=== PATIENT | male | born 1935 | race Caucasian/White ===

== ENCOUNTER 2021-02-19 08:36 | Outpatient (CLI) | payer MEDICARE, SELFPAY ==
--- NOTE | 2021-02-19 09:15 | US_ITS ---
WS: [id number] ULTRASOUND RENAL TECHNIQUE: Ultrasound examination of both kidneys. CLINICAL INFORMATION: DETRUSOR, DYSFUNCTION COMPARISON: None. FINDINGS: Moderate bilateral hydronephrosis. RIGHT: Echogenicity: Normal. Cortical thickness: 1.5 cm; Normal. Hydronephrosis: Moderate Perinephric fluid: None. Right kidney measures: 10.2 cm x 3.7 cm x 5.4 cm. LEFT: Simple left renal cyst measuring 1.6 x 1.7 x 1.8 cm Echogenicity: Normal. Cortical thickness: 1.2 cm; Normal. Hydronephrosis: Moderate Perinephric fluid: None. Left kidney measures: 11.3 cm x 3.6 cm x 4.2 cm. Normal visualized aorta. Enlarged prostate measuring 5.8 x 6.1 x 5.2 cm. Diffuse bladder wall thicken ing consistent with bladder outlet obstruction. US/US renal BI* [id number] IMPRESSION: 1. Moderate bilateral hydronephrosis with proximal ureterectasis. 2. Enlarged nodular prostate measuring 5.8 x 6.1 x 5.2 cm with bladder outlet obstruction. Recommend correlation PSA.
== END 2021-02-19 08:37 | disposition home or self-care (01) ==
PROVIDERS: PCP Family Medicine; Visit Provider Urology
DX: N31.8 Other neuromuscular dysfunction of bladder (principal); N13.30 Unspecified hydronephrosis; N40.0 Benign prostatic hyperplasia without lower urinary tract symptoms
CPT/HCPCS: 76770; 80048

== ENCOUNTER 2021-08-24 11:22 | Inpatient (IN) | payer MEDICARE, SELFPAY ==
[2021-08-24 11:57] VITALS: BP 124/81; PULSE 87; RESP 20; TEMP 36.5; O2SAT 98; BMI 20.8
--- NOTE | 2021-08-24 12:08 | XR_ITS ---
WS: [id number] XR chest 1V portable [id number] REASON FOR EXAM: dyspnea/cough FINDINGS: Moderate tortuosity the thoracic aorta. Normal heart size. Calcified granulomatous changes in both hemithoraces. No active pulmonary parenchymal or pleural disease. There is some flattening of the hemidiaphragms suggesting an element of obstructive lung disease. Moderate degenerative spondylosis in the mid and lower thoracic spine. XR/XR chest 1V portable [id number] IMPRESSION: No acute chest abnormality.
[2021-08-24 13:28] LABS: Basophils % 0.4 %; Hemoglobin 12.5 g/dL (11.7-16.6); Lymphocytes # 1.1 10^3/uL (0.8-4.8); Lymphocytes % 9.4 %; Mean Corpuscular HGB Conc 31.3 g/dL (30.0-36.0); Mean Corpuscular Hemoglobin 26.5 pg (28.0-34.0); Mean Corpuscular Volume 84.9 fl (80-94); Monocytes # 1.4 10^3/uL (0.2-0.9); Monocytes % 12.8 %; Neutrophils % 74.9 %; Nucleated Red Blood Cells % 0 %; Platelet Count 385 10^3/cmm (130-400); Red Blood Count 4.71 10^6/uL (4.1-5.3); Red Cell Distribution Width 14.6 % (12.1-15.1); White Blood Count 11.2 10^3/uL (4.0-10.0)
[2021-08-24 13:50] LABS: Alanine Aminotransferase 6 U/L (0-41); Albumin Level 3.8 g/dL (3.5-5.2); Alkaline Phosphatase 76 IU/L (40-130); Anion Gap 27.6 (5-19); Aspartate Amino Transferase 8 U/L (0-40); Carbon Dioxide 11 mmol/L (22-29); Chloride 97 mmol/L (98-107); Glucose 150 mg/dL (65-115); Potassium 4.6 mmol/L (3.5-5.1); Sodium 131 mmol/L (136-145); Total Bilirubin 0.5 mg/dL (0.15-1.2); Total Protein 7.8 g/dL (6.6-8.7)
[2021-08-24 14:00] LABS: Blood Urea Nitrogen 153 mg/dL (8-23)
[2021-08-24 14:01] LABS: Osmolality Calculated 325 mOsm/kg (285-295)
--- NOTE | 2021-08-24 17:11 | ED_ITS ---
HPI - General Adult General: Chief complaint: ER Hold Stated complaint: NOT EATING NOT DRINKING Time Seen by Provider: 08/24/21 16:54 History of Present Illness: 86-year-old male presents emergency room he was recently diagnosed with COVID at his primary care doctor's office. He has not been able to eat or drink and has progressively been weakening to the point that he cannot manage his own ADLs. He was somewhat limited prior to this episode as well. He is not been particularly short of breath his oxygenation has been good at home and is here as well. Patient self caths and reports decreased urinary return from his catheterizations. Onset (ago): day(s) Severity: severe (Weakness) Relieving factors: none Exacerbating factors: none Associated symptoms: Reports confusion, cough, decreased appetite, malaise, nausea, vomiting and weakness; Deny chest pain, diaphoresis, dyspnea, fevers/chills, headache(s), rash, palpitations, seizures, short of breath or syncope Treatments prior to arrival: none Review of Systems Const: Reports: malaise; Denies: diaphoresis ENMT: Denies: throat pain, ear or mastoid pain, nasal discharge or nasal congestion Card: Denies: chest pain, palpitations or syncope Resp: Reports: non-productive cough and wheezing; Denies: dyspnea GI: Reports: nausea and vomiting : Reports: oliguria and other (Chronic urinary retention secondary to BPH, patient self caths) Skin/Breast: Denies: rash Neuro: Reports: confusion; Denies: headache(s) FORMERLY [facility], [facility]–1983 ED PFSH: Medical History Bilateral hydronephrosis CKD (chronic kidney disease) COVID Detrusor dysfunction DNR (do not resuscitate) Epididymitis, right History of right inguinal hernia Intermittent self-catheterization of bladder Urinary retention Surgical History History of cataract surgery BILATERAL Family History Mother , AT AGE 76 Diabetes Father , AT AGE 67 CVA Stroke Social History Smoking and tobacco status: never smoked Alcohol intake: never Adopted: No Caregiver/support person: No Marital status: Current occupational status: retired History of recent travel: No Physical Exam Const: COMMON NORMALS: no acute distress GENERAL APPEARANCE: cooperative and comfortable ORIENTATION/CONSCIOUSNESS: Yes awake HENMT: COMMON NORMALS: normocephalic, atraumatic and hearing grossly normal bilaterally HEAD & SCALP: normocephalic and atraumatic Neck/C-Spine: COMMON NORMALS: no JVD Resp: AUSCULTATION: crackles and wheezes Cardio: COMMON NORMALS: no JVD, regular rate, regular rhythm and No murmurs present (Cardio) RATE: regular rate RHYTHM: regular rhythm GI: COMMON NORMALS: Soft to palpation and No hepatosplenomegaly present AUSCULTATION: Yes normoactive bowel sounds PALPATION: Yes Soft to palpation, No Tenderness to palpation present (GI), No Guarding due to palpation present (GI) and Yes No hepatosplenomegaly present Extremity: COMMON NORMALS: normal to inspection, capillary refill normal, no clubbing, cyanosis or edema, no calf tenderness and no pedal edema Skin: COMMON NORMALS: no rashes or lesions noted GENERAL SKIN EXAM: no rashes or lesions noted Course Vital Signs: Vital signs: Vital Signs Temperature 97.7 F 08/24/21 11:57 Pulse Rate 87 08/25/21 06:35 Respiratory Rate 18 08/25/21 06:35 Blood Pressure 102/63 08/25/21 06:35 Pulse Oximetry 98 08/25/21 06:35 MDM - General Adult Medical Decision Making Patient usually self caths and has noticed decreased urinary output and she had difficulty with intake as well as things largely secondary to his COVID. Overall however his COVID is not that significant his oxygenation is good and he seems to be tolerating it well at least at this point. He is significantly h yponatremic and has severe acute kidney injury. He is mildly anemic. UA shows signs of cystitis. Discussed with Dr. Gonzales he will assume care and see the patient in the emergency room due to lack of inpatient beds patient will likely have a prolonged ER hold. Medical Records I reviewed the patient's medical records. Lab Data I reviewed the patient's lab results. : 08/25/21 05:52 08/24/21 21:29 Radiology Impressions Chest X-Ray 08/24/21 12:08 IMPRESSION: No acute chest abnormality. Abdomen/Pelvis CT 08/24/21 17:47 IMPRESSION: 1. 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 2. Moderate right hip osteoarthritis. 3. Small left inguinal hernia containing omentum without bowel. 4. Right lower lobe airspace infiltrate. 5. Cholelithiasis. Laboratory Results WBC 8.7 10^3/uL (4.0-10.0) 08/25/21 05:52 RBC 3.91 10^6/uL (4.1-5.3) L 08/25/21 05:52 Hgb 10.6 g/dL (11.7-16.6) L 08/25/21 05:52 Hct 31.5 % (42.0-52.0) L 08/25/21 05:52 MCV 80.6 fl (80-94) D 08/25/21 05:52 MCH 27.1 pg (28.0-34.0) L 08/25/21 05:52 MCHC 33.7 g/dL (30.0-36.0) D 08/25/21 05:52 RDW 14.5 % (12.1-15.1) 08/25/21 05:52 Plt Count 252 10^3/cmm (130-400) D 08/25/21 05:52 MPV 9.2 fL (7.4-10.4) 08/25/21 05:52 Neut % (Auto) 81.6 % 08/25/21 05:52 Lymph % (Auto) 5.3 % 08/25/21 05:52 Colbert % (Auto) 10.7 % 08/25/21 05:52 Eos % (Auto) 0.0 % 08/25/21 05:52 Baso % (Auto) 0.1 % 08/25/21 05:52 Neut # (Auto) 7.13 10^3/uL (1.8-7.7) 08/25/21 05:52 Lymph # (Auto) 0.5 10^3/uL (0.8-4.8) L 08/25/21 05:52 Colbert # (Auto) 0.9 10^3/uL (0.2-0.9) 08/25/21 05:52 Eos # (Auto) 0.0 10^3/uL (0.0-0.8) 08/25/21 05:52 Baso # (Auto) 0.0 10^3/uL (0.0-0.1) 08/25/21 05:52 Nucleated RBC % (auto) 0 % 08/25/21 05:52 Nucleated RBCs # 0.0 /100WBC 08/25/21 05:52 PT 14.40 SECONDS (12.1-14.9) 08/24/21 21:29 INR 1.09 (0.8-1.2) 08/24/21 21:29 D-Dimer 1.42 ug/mIFEU (0-0.59) H 08/24/21 21:29 Sodium 130 mmol/L (136-145) L 08/24/21 21:29 Potassium 4.6 mmol/L (3.5-5.1) 08/24/21 21:29 Chloride 95 mmol/L (98-107) L 08/24/21 21:29 Carbon Dioxide 16 mmol/L (22-29) L 08/24/21 21:29 Anion Gap 23.6 (5-19) H 08/24/21 21:29 BUN 161 mg/dL (8-23) H* 08/24/21 21:29 Creatinine 8.9 mg/dL (0.7-1.2) H* 08/24/21 21:29 GFR Calculation Not Reportable 08/24/21 21:29 Glucose 158 mg/dL (65-115) H 08/24/21 21:29 Estimat Average Glucose 123 08/25/21 05:52 Hemoglobin A1c 5.9 % (4.0-6.0) 08/25/21 05:52 Calculated Osmolality 326 mOsm/kg (285-295) H 08/24/21 21:29 Calcium 8.8 mg/dL (8.5-10.5) 08/24/21 21:29 Phosphorus 5.7 mg/dL (2.5-4.5) H 08/24/21 21:29 Magnesium 3.1 mg/dL (1.7-2.3) H 08/24/21 21:29 Iron 22 ug/dL (59-158) L 08/24/21 21: TIBC 201 mcg/dl 08/24/21 21: % Saturation 10.9 % (20-50) L 08/24/21: Unsat Iron Binding 179 ug/dL (112-347) 08/24/21 21: Total Bilirubin 0.3 mg/dL (0.15-1.2) 08/24/21: AST 12 U/L (0-40) 08/24/21: ALT 6 U/L (0-41) 08/24/21 21: Alkaline Phosphatase 77 IU/L (40-130) 08/24/21 21: Lactate Dehydrogenase 151 U/L (135-225) 08/24/21: Creatine Kinase 66 U/L (39-308) 08/24/21 21: C-Reactive Protein 67.1 mg/L (0.0-4.9) H 08/24/21: Total Protein 7.5 g/dL (6.6-8.7) 08/24/21 21: Albumin 3.8 g/dL (3.5-5.2) 08/24/21 21: Globulin 3.7 g/dL (1.3-4.6) 08/24/21 21: Procalcitonin 1.04 ng/mL (0-0.5) H 08/24/21 21: TSH 0.11 uIU/mL (0.27-4.20) L 08/24/21: Free T4 1.19 ng/dL (0.82-1.77) 08/24/21 21: Free T3 1.5 PG/ML (2.0-4.4) L 08/24/21 21:29 Urine Color Cancelled 08/24/21 18:56 Urine Color Yellow (Yellow) 08/24/21 18:56 Urine Appearance Cancelled 08/24/21 18:56 Urine Appearance Hazy (CLEAR) A 08/24/21 18:56 Urine pH 6 (5-7) 08/24/21 18:56 Urine pH Cancelled 08/24/21 18:56 Ur Specific Goodman 1.010 (1.005-1.030) 08/24/21 18:56 Ur Specific Goodman Cancelled 08/24/21 18:56 Urine Protein 1+ (Negative) H 08/24/21 18:56 Urine Protein Cancelled 08/24/21 18:56 Urine Glucose (UA) Cancelled 08/24/21 18:56 Urine Glucose (UA) Norm (Normal) 08/24/21 18:56 Urine Ketones Cancelled 08/24/21 18:56 Urine Ketones Negative (Negative) 08/24/21 18:56 Urine Blood 3+ (Negative) H 08/24/21 18:56 Urine Blood Cancelled 08/24/21 18:56 Urine Nitrate Cancelled 08/24/21 18:56 Urine Nitrate Negative (Negative) 08/24/21 18:56 Urine Bilirubin Cancelled 08/24/21 18:56 Urine Bilirubin Neg (Negative) 08/24/21 18:56 Prot Sulfosalicylic Acd Cancelled 08/24/21 18:56 Urine Urobilinogen Cancelled 08/24/21 18:56 Urine Urobilinogen Norm mg/dL (Negative) 08/24/21 18:56 Ur Leukocyte Esterase 2+ (Negative) H 08/24/21 18:56 Ur Leukocyte Esterase Cancelled 08/24/21 18:56 Ur Microscopic Indic Cancelled 08/24/21 18:56 Urine RBC 5-10 /hpf (0-2) H 08/24/21 18:56 Urine WBC >100 /hpf (0-5) H 08/24/21 18:56 Ur Eosinophil Smear TNP 08/24/21 18:56 Ur Squamous Epith Cells 0-4 /hpf (0-5) H 08/24/21 18:56 Amorphous Sediment Not Reportable 08/24/21 18:56 Urine Bacteria 2+ /hpf (NONE) H 08/24/21 18:56 Urine Eosinophils No eosinophils seen 08/24/21 18:56 Ur Random Microalbumin 41 ug/dL (0-20) H 08/24/21 18:56 Ur Random Sodium 71 mmol/L 08/24/21 18:56 Ur Random Potassium 21 mmol/L 08/24/21 18:56 Ur Random Chloride 51 mmol/L 08/24/21 18:56 Urine Creatinine 83 mg/dL (39-259) 08/24/21 18:56 Urine Creatinine 89 mg/dL (39-259) 01/31/22 18:56 Microalb/Creat Ratio 461 mg/dL (0-20) H 08/24/21 18:56 Hepatitis A IgM Ab Non-reactive (Nonreactive) 08/24/21 21:29 Hep Bs Antigen Non-reactive (Nonreactive) 08/24/21 21:29 Hep Bs Antibody 3.5 (11.5-1000) L 08/24/21 21:29 Hep B Core Total Ab Non-reactive (Nonreactive) 08/24/21 21:29 Hepatitis C Antibody Non-reactive (Nonreactive) 08/24/21 21:29 HIV 1&2 Ab & HIV 1 Ag Non-reactive (Non-Reactiv) 08/24/21 21:29 HIV 1&2 Antibody Non-reactive (Non-Reactiv) 08/24/21 21:29 Discharge Plan Discharge Patient Disposition: Admitted As Inpatient Admit Provider: Biju Gonzales Clinical Impression: Acute kidney injury superimposed on CKD, Bilateral hydronephrosis, High anion gap metabolic acidosis, Urinary retention, Cystitis, DNR (do not resuscitate), Intermittent self-catheterization of bladder, COVID Condition: Stable Coding Level of Care Code ED Site Superintendent for Bindu Weston
--- NOTE | 2021-08-24 17:47 | CTR_ITS ---
PROCEDURE INFORMATION: Exam: CT Abdomen And Pelvis Without Contrast Exam date and time: 08/24/2021 5:47 PM Age: 86 years old Clinical indication: Other: Not eating or drinking; Additional info: Renal failure TECHNIQUE: Imaging protocol: Computed tomography of the abdomen and pelvis without contrast. Radiation optimization: All CT scans at this facility use at least one of these dose optimization techniques: automated exposure control; mA and/or kV adjustment per patient size (includes targeted exams where dose is matched to clinical indication); or iterative reconstruction. COMPARISON: CT abdomen pelvis [facility] [id number] 03/07/2017 8:39 PM RADIATION DOSE METRICS: Total DLP (mGy-cm): 568.21 FINDINGS: Lungs: Right lower lobe airspace infiltrate. Liver: Normal. No mass. Gallbladder and bile ducts: Cholelithiasis. Pancreas: Normal. No ductal dilation. Spleen: Normal. No splenomegaly. Adrenal glands: Normal. No mass. Kidneys and ureters: Severe bilateral hydronephrosis and hydroureter with a trabeculated appearance of the urinary bladder and nodular enlargement of the prostate gland suggestive of chronic outflow obstruction secondary to the prostate causing a degree of chronic obstruction. Stomach and bowel: Unremarkable. No obstruction. No mucosal thickening. Appendix: No evidence of appendicitis. Intraperitoneal space: Unremarkable. No free air. No significant fluid collection. Vasculature: Unremarkable. No abdominal aortic aneurysm. Lymph nodes: Unremarkable. No enlarged lymph nodes. Urinary bladder: See Kidneys and ureters finding. Reproductive: See Kidneys and ureters finding. Bones/joints: Moderate right hip osteoarthritis. Soft tissues: Small left inguinal hernia containing omentum without bowel. CT/CT abdomen pelvis [facility] [id number] IMPRESSION: 1. 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 2. Moderate right hip osteoarthritis. 3. Small left inguinal hernia containing omentum without bowel. 4. Right lower lobe airspace infiltrate. 5. Cholelithiasis.
--- NOTE | 2021-08-24 17:54 | P.HP_ITS ---
Providers/Chief Complaint Primary Care Provider: Maciej Butcher DO Chief Complaint: NOT EATING NOT DRINKING History of Present Illness Jose Bergman is a 86 year old male with with past medical history of BPH, bilateral hydronephrosis, CKD with baseline creatinine of 4, who self catheterizes at home who was recently tested positive for Covid on last August 18 brought into the hospital today by his son because of feeling weak and poor appetite. As per the son patient has been getting weaker over last 2 weeks after he had a sinus infection though tested positive only 6 days ago. Patient has had poor appetite and oral intake for last 1 week. Denies any change in color or amount of urine for last 1 week. Denies any changes in schedule of self-catheterization. On examination patient lying comfortably in bed, very hard of hearing, arousable and following simple commands with blood pressure of 120/80, heart rate of 57, saturating 97% on room air. Blood work in the ER showed a white count of 11.2, hemoglobin of 12.5, sodium of 131, creatinine of 8.9, BUN of 153, AST/ALT of 8/6. Review of Systems General: Reports: ROS unobtainable due to mental status Medications/Allergies Home Medications Medication Instructions Recorded Confirmed Last Taken Type finasteride 5 mg tablet 5 mg PO QDAY #90 tab 02/03/21 02/19/21 Unknown Rx tamsulosin 0.4 mg capsule See Rx Instructions .ROUTE 07/17/21 Unknown Rx .COMPLEX #180 cap Allergies Allergy/AdvReac Type Severity Reaction Status Date / Time No Known Allergies Allergy Unverified 08/24/21 11:57 PFSH Acute PFSH: Medical History (Updated 08/24/21 @ 18:10 by Biju Gonzales MD) Bilateral hydronephrosis CKD (chronic kidney disease) COVID Detrusor dysfunction DNR (do not resuscitate) Epididymitis, right History of right inguinal hernia Intermittent self-catheterization of bladder Urinary retention Surgical History History of cataract surgery BILATERAL Family History Mother , AT AGE 76 Diabetes Father , AT AGE 67 CVA Stroke Social History Smoking and tobacco status: never smoked Alcohol intake: never Adopted: No Caregiver/support person: No Marital status: Current occupational status: retired History of recent travel: No Vitals/I&O/Wt Last Vital Signs Temp 97.7 F 08/24/21 11:57 Pulse 87 08/24/21 11:57 Resp 20 H 08/24/21 11:57 BP 124/81 08/24/21 11:57 Pulse Ox 98 08/24/21 11:57 Weight last 48 hrs Weight 58.513 kg Physical Exam Narrative: EXAM NARRATIVE: General: No acute distress, hard of hearing, lethargic, arousable HEENT: PERRLA, pupils bilaterally equal and reactive Chest: Bilateral bronchial breath sounds with occasional rhonchi all over the lung [place], equal good air entry bilaterally CVS: S1-S2 regular, no murmurs, no tachycardia, no gallops, no rubs Abdomen: Soft, nontender, no organomegaly, bowel sounds present Neuro: No focal deficits, no facial deformity, AO x3, power 3/5 in all limbs Data : 08/24/21 13:20 08/24/21 13:20 A&P Assessment and plan (1) Acute kidney injury superimposed on CKD: Status: Acute (2) COVID: Status: Acute (3) Intermittent self-catheterization of bladder: Status: Acute (4) Bilateral hydronephrosis: Status: Acute (5) High anion gap metabolic acidosis: Status: Acute (6) DNR (do not resuscitate): Status: Acute Plan 86-year-old man with past medical history of CKD, chronic urinary retention on intermittent self-catheterization, bilateral hydronephrosis presented to the ER with lethargy and weakness found to be in DIANE on CKD. CT abdomen pelvis without contrast to evaluate for hydronephrosis. Buchanan catheterization, urinalysis, urine lites, urine creatinine, urine eosinophils. Check hepatitis panel, HIV, magnesium, phosphorus. Repeat BMP stat. Normal saline at 50 cc/h while monitoring for fluid overload. No overt need of dialysis currently. Will consult nephrology. Continue home dose of finasteride and Flomax. COVID-19: Diagnosed 6 days ago. Still do not have a report. Will request tomorrow morning with primary's office. Isolation precaution. Saturating well on room air. Hold off on any treatment for now. Monitor inflammatory markers with CRP every 48 hours. CODE STATUS: Discussed with son/caregiver/DPOA in detail. DNR/DNI. Renal nondialysis diet. 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
--- NOTE | 2021-08-24 18:25 | P.CONIM_ITS ---
Providers/Reason For Consult Consulting Physician/Specialty*: matt garcia md / telenephrology Reason for Consult*: DIANE on CKD stage 4 CKD Attending Physician: Dr Griffin Primary Care Provider: Maciej Butcher DO History of Present Illness History of Present Illness Jose Bergman is a 86 year old male h/o bpj, hydronephrosis- self caths - follows w/ Dr. Gallagher and Dr. Limon. Has a baseline cr of 4 mg/dl as of January 2021. Pt recently was diagnosed w/ COVID-19+ had a viral syndrome. sonaime then has been weak, lethargic, confused, not eatung. His family brought him to the ER. He is being admitted for DIANE Review of Systems Narrative: weak, confused, weight loss, no appetite, poor hearing, no cp, no sob, no abd pain. self caths- dec uop. no edema Medications/Allergies Home Medications Medication Instructions Recorded Confirmed Last Taken Type finasteride 5 mg tablet 5 mg PO QDAY #90 tab 02/03/21 02/19/21 Unknown Rx tamsulosin 0.4 mg capsule See Rx Instructions .ROUTE 07/17/21 Unknown Rx .COMPLEX #180 cap Allergies Allergy/AdvReac Type Severity Reaction Status Date / Time No Known Allergies Allergy Unverified 08/24/21 11:57 PFSH Acute PFSH: Medical History (Updated 08/24/21 @ 18:10 by Biju Gonzales MD) Bilateral hydronephrosis CKD (chronic kidney disease) COVID Detrusor dysfunction DNR (do not resuscitate) Epididymitis, right History of right inguinal hernia Intermittent self-catheterization of bladder Urinary retention Surgical History History of cataract surgery BILATERAL Family History Mother , AT AGE 76 Diabetes Father , AT AGE 67 CVA Stroke Social History Smoking and tobacco status: never smoked Alcohol intake: never Adopted: No Caregiver/support person: No Marital status: Current occupational status: retired History of recent travel: No Vitals/I&O/Wt Last Vital Signs Temp 97.7 F 08/24/21 11:57 Pulse 87 01/31/22 11:57 Resp 20 H 08/24/21 11:57 BP 124/81 08/24/21 11:57 Pulse Ox 98 08/24/21 11:57 Weight last 48 hrs Weight 58.513 kg Physical Exam Narrative: EXAM NARRATIVE: elderly man in bed, NARD vs noted heent- nc/at, eomi, poor hearing neck supple lungs- clear b/l heart reg abd soft, nt, nd, + bs ext no edema neuro- confused, oriented x 1 Data : 08/24/21 13:20 08/24/21 13:20 A&P Assessment and plan (1) Acute kidney injury superimposed on CKD: 86 yr old man self cath, chronic hydronephrosis, CKD stage 4- baseline cr 4 mg/dl 1. DIANE- d dx is Prerenal vs aTN vs COVID nephropathy vs progression of underlying renal disease -check ua, urine lytes -give ivf -renal us -given significant CKD stage 4 and b/l hydronephrosis at baseline- his kidneys likely could not compensate for any hypotension when he had COVID 2. inc AGMA- from DIANE. soft belly. pt is dNR -rx conservatively w/ bicarb -son states that if pt does not improve w/ fluids, then attempt HD 3. hyponatremia- check tsh, cortisol -urine lytes -give fluids 4. monitor gluc seen and examined w/ rN- telehealth visit -informed consent for telehealth obtained from pt and his son time spent 55 min Status: Acute Plan see above Consult Attestations Medical Necessity Statement: diane, met acidosis, AMS Time Spent in Patient Care: Greater than 35 minutes (>than 50% of time spent in counselling and/or direct pt care on unit) . 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
[2021-08-24 19:21] LABS: Bilirubin Urine Neg (Negative); Blood Urine 3+ (Negative); Glucose Urine UA Norm (Normal); Ketones Urine Negative (Negative); Leukocyte Esterase Urine 2+ (Negative); Nitrate Urine Negative (Negative); Protein Urine 1+ (Negative); Squamous Epithelial Cell Urine 0-4 /hpf (0-5); Urine Appearance Hazy (CLEAR); Urine Color Yellow (Yellow); Urobilinogen Urine Norm (Negative); WBC Urine >100 /hpf (0-5); pH Urine 6 (5-7)
[2021-08-24 19:22] LABS: Add Urine Culture? Yes; Bacteria Urine 2+ /hpf
[2021-08-24 19:37] LABS: Potassium, Radom Urine 21 mmol/L; Urine Creatinine 83 mg/dL (39-259); Urine Random Chloride 51 mmol/L; Urine Random Sodium 71 mmol/L
[2021-08-24 19:42] LABS: Creatinine Urine, Random 89 mg/dL (39-259)
[2021-08-24 19:56] LABS: Microalbum Creatinine Ratio Ur 461 mg/dL (0-20); Microalbumin Random Urine 41 ug/dL (0-20)
[2021-08-24 20:10] LABS: Eosinophil Urine No Eosinophils Seen
[2021-08-24] MEDS: cefTRIAXone 1,000 MG in sodium chloride 0.9% (plus) 50 ML 100 MG IV (20:12)
[2021-08-24] MEDS: sodium bicarbonate 150 MEQ in dextrose 5% 1,000 ML 100 MEQ IV (20:17)
[2021-08-24 21:52] VITALS: BP 131/80; PULSE 99; RESP 21; O2SAT 99
[2021-08-24 21:52] LABS: INR 1.09 (0.8-1.2)
[2021-08-24 21:55] LABS: D Dimer 1.42 ug/mIFEU (0-0.59)
[2021-08-24 22:09] LABS: Procalcitonin 1.04 ng/mL (0-0.5); Thyroid Stimulating Hormone 0.11 uIU/mL (0.27-4.20)
[2021-08-24 22:15] LABS: HIV 1 & 2 Antibody Non-Reactive (Non-Reactiv); HIV 1 & 2 Antigen Non-Reactive (Non-Reactiv)
[2021-08-24 22:21] LABS: Alanine Aminotransferase 6 U/L (0-41); Albumin Level 3.8 g/dL (3.5-5.2); Alkaline Phosphatase 77 IU/L (40-130); Anion Gap 23.6 (5-19); Aspartate Amino Transferase 12 U/L (0-40); C Reactive Protein 67.1 mg/L (0.0-4.9); Calcium 8.8 mg/dL (8.5-10.5); Carbon Dioxide 16 mmol/L (22-29); Chloride 95 mmol/L (98-107); Creatine Phosphokinase 66 U/L (39-308); Globulin 3.7 g/dL (1.3-4.6); Glucose 158 mg/dL (65-115); Lactate Dehydrogenase 151 U/L (135-225); Magnesium 3.1 mg/dL (1.7-2.3); Phosphorus 5.7 mg/dL (2.5-4.5); Potassium 4.6 mmol/L (3.5-5.1); Sodium 130 mmol/L (136-145); Total Bilirubin 0.3 mg/dL (0.15-1.2); Total Protein 7.5 g/dL (6.6-8.7)
[2021-08-24 22:22] LABS: Hepatitis A Antibody IgM Non-Reactive (Nonreactive); Hepatitis B Core AB, Total Non-Reactive (Nonreactive); Hepatitis B Surface AB 3.5 (11.5-1000); Hepatitis B Surface Antigen Non-Reactive (Nonreactive); Hepatitis C Virus Antibody Non-Reactive (Nonreactive)
[2021-08-24] MEDS: heparin 5,000 unit/mL INJ 1 mL 5000 UNIT SUBCUT (22:22)
[2021-08-24] MEDS: famotidine 20 mg/2 mL INJ IVP (22:24)
[2021-08-24 22:27] LABS: Osmolality Calculated 326 mOsm/kg (285-295)
[2021-08-24 22:28] LABS: Blood Urea Nitrogen 161 mg/dL (8-23)
[2021-08-24 23:08] LABS: Free T4 Free Thyroxine 1.19 ng/dL (0.82-1.77); T3 Free 1.5 PG/ML (2.0-4.4)
[2021-08-25] VITALS (15 sets, daily range): BP systolic 102–167; BP diastolic 60–76; PULSE 78–103; RESP 16–22; TEMP 36.3–37; O2SAT 94–99
[2021-08-25 00:29] LABS: Iron 22 ug/dL (59-158); Percent Saturation 10.9 % (20-50); Total Iron Binding Capacity 201 mcg/dl; Unsaturated Iron Binding 179 ug/dL (112-347)
[2021-08-25] MEDS: ipratropium-albuterol 3 mL Neb INHALATION ×4 (02:51→20:17)
[2021-08-25 05:59] LABS: Basophils % 0.1 %; Hematocrit 31.5 % (42.0-52.0); Hemoglobin 10.6 g/dL (11.7-16.6); Lymphocytes # 0.5 10^3/uL (0.8-4.8); Lymphocytes % 5.3 %; Mean Corpuscular HGB Conc 33.7 g/dL (30.0-36.0); Mean Corpuscular Hemoglobin 27.1 pg (28.0-34.0); Mean Corpuscular Volume 80.6 fl (80-94); Mean Platelet Volume 9.2 fL (7.4-10.4); Monocytes # 0.9 10^3/uL (0.2-0.9); Monocytes % 10.7 %; Neutrophils # 7.13 10^3/uL (1.8-7.7); Neutrophils % 81.6 %; Nucleated Red Blood Cells % 0 %; Platelet Count 252 10^3/cmm (130-400); Red Blood Count 3.91 10^6/uL (4.1-5.3); Red Cell Distribution Width 14.5 % (12.1-15.1); White Blood Count 8.7 10^3/uL (4.0-10.0)
[2021-08-25 06:26] LABS: Estmated Average Glucose 123; Hemoglobin A1C 5.9 % (4.0-6.0)
[2021-08-25 06:47] LABS: Alanine Aminotransferase < 5 U/L (0-41); Albumin Level 3.4 g/dL (3.5-5.2); Alkaline Phosphatase 81 IU/L (40-130); Anion Gap 22.3 (5-19); Aspartate Amino Transferase 9 U/L (0-40); C Reactive Protein 65.4 mg/L (0.0-4.9); Calcium 8.5 mg/dL (8.5-10.5); Carbon Dioxide 18 mmol/L (22-29); Chloride 95 mmol/L (98-107); Chol HDL Ratio 5.03 mg/dL (1.0-5.00); Cholesterol 176 mg/dL (0-200); Globulin 3.3 g/dL (1.3-4.6); Glucose 176 mg/dL (65-115); HDL Cholesterol 35 mg/dL (60-100); LDL Cholesterol Calculated 114 mg/dL (50-129); Magnesium 2.8 mg/dL (1.7-2.3); Phosphorus 4.6 mg/dL (2.5-4.5); Potassium 3.3 mmol/L (3.5-5.1); Sodium 132 mmol/L (136-145); Thyroid Stimulating Hormone 0.12 uIU/mL (0.27-4.20); Total Bilirubin 0.4 mg/dL (0.15-1.2); Total Protein 6.7 g/dL (6.6-8.7); Triglycerides 136 mg/dL (0-150); VLDL Cholestrol Calculation 27 mg/dL (0-30)
[2021-08-25 06:48] LABS: Hepatitis C Virus Antibody Non-Reactive (Nonreactive)
[2021-08-25 07:01] LABS: Osmolality Calculated 328 mOsm/kg (285-295)
[2021-08-25 07:02] LABS: Blood Urea Nitrogen 152 mg/dL (8-23)
[2021-08-25 07:36] LABS: 25 Hydroxy Vitamin D 33 ng/mL (30-100)
[2021-08-25] MEDS: sodium bicarbonate 150 MEQ in dextrose 5% 1,000 ML 100 MEQ IV (08:51)
[2021-08-25] MEDS: famotidine 20 mg/2 mL INJ IVP ×2 (08:51→23:09)
--- NOTE | 2021-08-25 08:54 | P.PN_ITS ---
Subjective Subjective: Interval history: more awake. good uop. more awake Medications: Reviewed: Yes Medication Review Details: Current Medications Acetaminophen (Acetaminophen 325 Mg Tablet) 650 mg PO Q6H PRN PRN Reason: Mild/Mod Pain Or Temp >/= 101 Albuterol/Ipratropium (Ipratropium-Albuterol 3 Ml Neb) 3 ml INHALATION Q6H.RESPIRATORY MAGGIE Last Admin: 08/25/21 02:51 Dose: 3 ml Documented by: Bisacodyl (Bisacodyl 5 Mg Tablet) 10 mg PO DAILY PRN; Protocol PRN Reason: Constipation (see protocol) Famotidine (Famotidine 20 Mg/2 Ml Inj) 20 mg IVP Q12H MAGGIE Last Admin: 08/25/21 08:51 Dose: 20 mg Documented by: Finasteride (Finasteride 5 Mg Tablet) 5 mg PO DAILY MAGGIE Heparin Sodium (Porcine) (Heparin 5,000 Unit/Ml Inj 1 Ml) 5,000 unit SUBCUT Q12H MAGGIE Last Admin: 08/24/21 22:22 Dose: 5,000 unit Documented by: Sodium Bicarbonate 150 meq/ (Dextrose) 1,150 mls @ 100 mls/hr IV .[id number] MAGGIE Last Admin: 08/25/21 08:51 Dose: 100 mls/hr Documented by: Ceftriaxone Sodium 1,000 mg/ (Sodium Chloride) 50 mls @ 100 mls/hr IV Q24H MAGGIE; Protocol Last Admin: 08/24/21 20:12 Dose: 100 mls/hr Documented by: Lactulose (Lactulose Oral Liq 20 Gm/30 Ml Udc) 10 gm PO DAILY PRN; Protocol PRN Reason: Constipation (see protocol) Morphine Sulfate (Morphine 4 Mg/Ml Sdv 1 Ml) 2 mg IVP Q4H PRN PRN Reason: SEVERE PAIN Ondansetron HCl (Ondansetron 2 Mg/Ml Sdv 2 Ml) 4 mg IVP Q8H PRN PRN Reason: vomiting, or N/V if npo Tamsulosin HCl (Tamsulosin 0.4 Mg Capsule) 0.4 mg PO DAILY [facility] Vitals/I&O/Wt Last Vital Signs Temp 97.7 F 08/24/21 11:57 Pulse 83 08/25/21 08:35 Resp 20 H 08/25/21 08:35 BP 110/60 08/25/21 08:35 Pulse Ox 97 08/25/21 08:35 08/24/21 08/25/21 08/25/21 22:59 06:59 14:59 Intake Total 1150 / 1150 Balance 1150 / 1150 Weight last 48 hrs Weight 58.513 kg Physical Exam Narrative: EXAM NARRATIVE: elderly man in bed, NARD vs noted heent- nc/at, eomi, poor hearing neck supple lungs- clear b/l heart reg abd soft, nt, nd, + bs ext no edema neuro- confused, oriented x 1+ Urinary Catheter Management: Buchanan: Cath Placed During This Visit: yes Urinary Catheter Date of Insertion: 08/24/21 Urinary Catheter Time of Insertion: 18:55 Data : 08/25/21 05:52 08/25/21 05:52 A&P Assessment and plan (1) Acute kidney injury superimposed on CKD: 86 yr old man self cath, chronic hydronephrosis, CKD stage 4- baseline cr 4 mg/dl 1. DIANE- d dx is Prerenal vs aTN vs COVID nephropathy vs progression of underlying renal disease - ua 3+ blood, 2+ LE, 5-10 rbc, > 100 wbc, urine lytes -kidney ct scan- . 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 -please ask urology- if they feel that hydronephrosis may be reversible -mild improvement in cr. god uop -monitor op -may need dialysis soon 2. inc AGMA- from DIANE. -improved w/ ivf 3. hyponatremia- check tsh -is low- he is hyperthyroid- unlikely cause of hyponatremia - cortisol -urine na c/w ATN -give fluids 4. monitor gluc 5. anemia- likely from ckd -iron sat 11%. await ferritin seen and examined w/ rN- telehealth visit time spent 25 min Status: Acute Plan see above Attestations Medical Necessity Statement*: diane on ckd, anemia Time Spent in Patient Care: 16 - 35 minutes (>than 50% of time spent in counselling and/or direct pt care on unit) . Coding Level of Care Code Acute Cafeteria Cashier for Bindu Weston Diagnoses Acute kidney injury superimposed on CKD N17.9; N18.9
[2021-08-25] MEDS: tamsulosin 0.4 mg Capsule PO (11:13)
[2021-08-25] MEDS: finasteride 5 mg Tablet PO (11:13)
[2021-08-25] MEDS: heparin 5,000 unit/mL INJ 1 mL 5000 UNIT SUBCUT ×2 (11:13→23:10)
[2021-08-25] MEDS: potassium chloride ER 20 mEq Tablet 40 MEQ PO (11:14)
[2021-08-25] MEDS: HYDROmorphone 1 mg/mL INJ 1 mL IVP (11:27)
[2021-08-25] MEDS: lactated ringers 1,000 ML 125 ML IV ×2 (13:00→20:06)
[2021-08-25] MEDS: lidocaine 2% Urojet 20 mL TOPICAL (13:02)
--- NOTE | 2021-08-25 13:02 | PM.PROC ---
Procedure Note: Date of procedure: 08/25/21 Pre-procedure diagnosis: urethral trauma secondary to cath foreable withdrawal Post-procedure diagnosis: same Procedure: 1. Bedside flexible cystoscopy 2. Difficult catheter placement. Prepped and draped in usual sterile fashion. 2% lidocaine jelly was instilled with small volume into the urethra. Flexible cystoscope was advanced under direct visualization into the urethra. There were at least 2 areas of false passage first distally and then in the membranous urethral area. The scope was able to be manipulated beyond these into the true lumen into the bladder. He has a very large prostate with trilobar involvement. Bladder was heavily trabeculated. There was not much blood in the bladder, most of it was in the urethra. Flexible tip guidewire was then passed into the bladder through the scope and curled into the bladder. Scope was removed. An 18 [place] tip catheter was advanced over the guidewire through the abnormal anatomy into the bladder with good function. The balloon was inflated with 10 cc and confirmed to be functioning before the wire was removed. Catheter was secured to the right leg with a StatLock and placed to dependent drainage. Additional protection with pull-ups was employed. He tolerated the procedure well without complications. Op report anesthesia: Local Performing Provider: Reed Gallagher Complications: none Pathology: none sent Coding Level of Care Code Acute Precision Thread Grinder Operator for Bindu Weston
--- NOTE | 2021-08-25 13:07 | P.CONIM_ITS ---
Providers/Reason For Consult Consulting Physician/Specialty*: Gallagher/ Urologyt Reason for Consult*: Urinary retention, bilateral hydronephrosis, urethral trauma from forcible catheter removal Requesting Physician: Dr. Sevilla Attending Physician: Jere Sevilla MD Primary Care Provider: Maciej Butcher DO History of Present Illness History of Present Illness Jose Bergman is a 86 year old male well-known to me for history of chronic urinary retention managed with [facility]. He has had intermittent episodes of acute renal failure with retention. With catheter indwelling he noted substantial improvement in his creatinine over time. Later switched to [facility] and has been running an average of around 4.0 creatinine. Was doing reasonably well with that and preferred [facility] over indwelling Buchanan catheter. It was felt that his primary reason for persistent retention was likely detrusor dysfunction with discovery of 2 L in his bladder at time of initial retention. He was hospitalized this day for progressive weakness poor appetite after recently being tested positive for Covid about 6 days ago. Was also noted to have confusion and decreased appetite along with malaise nausea vomiting and weakness. Upon admission creatinine was discovered to be 8.9 with a BUN of 161. Potassium was okay. CT scan demonstrated bilateral hydronephrosis hydroureter severely trabeculated bladder. Findings consistent with previous CT scans except for with this CT scan there is no catheter in his bladder. After catheter placement his creatinine has decreased from 8.9-8.3 today. Unfortunately he try to get out of bed and accidentally pulled the Buchanan catheter out. Attempts by nursing staff to replace it were unsuccessful. I was consulted for further evaluation. See procedure note for flexible bedside cystoscopy with difficult catheter placement. Recommendations: 1. Maintain Buchanan catheter and protect it 2. He will need to have the catheter in a discharge based on the degree of trauma identified during flexible cystoscopy. 3. May ultimately be a candidate again for self-catheterization but we will see. Review of Systems Const: Reports: change in appetite, fatigue and malaise Eyes: Denies: yellow eyes ENMT: Reports: other (Chronic hearing loss) Card: Denies: chest pain Resp: Denies: wheezing GI: Reports: abdominal pain, nausea and vomiting : Reports: difficulty urinating and hematuria; Denies: flank pain Musc: Denies: joint warmth Skin/Breast: Denies: rash or jaundice Neuro: Reports: confusion Psych: Reports: anxiety Endo: Denies: flushing Demond/Lymph: Denies: enlarged lymph nodes All/Imm: Denies: urticaria or acute wheezing Medications/Allergies Home Medications Medication Instructions Recorded Confirmed Last Taken Type finasteride 5 mg tablet 5 mg PO QDAY #90 tab 02/03/21 08/25/21 Unknown Rx tamsulosin 0.4 mg capsule See Rx Instructions .ROUTE 07/17/21 08/25/21 Unknown Rx .COMPLEX #180 cap Allergies Allergy/AdvReac Type Severity Reaction Status Date / Time No Known Allergies Allergy Unverified 08/24/21 11:57 Current Medications Generic Name Dose Route Start Last Admin Trade Name Freq PRN Reason Stop Dose Admin Albuterol/Ipratropium 3 ml 08/24/21 21:33 08/25/21 09:45 Ipratropium-Albuterol 3 Ml Neb INHALATION 3 ml Q6H.RESPIRATORY MAGGIE Administration Famotidine 20 mg 08/24/21 21:33 08/25/21 08:51 Famotidine 20 Mg/2 Ml Inj IVP 20 mg Q12H MAGGIE Administration Finasteride 5 mg 08/25/21 09:00 08/25/21 11:13 Finasteride 5 Mg Tablet PO 5 mg DAILY MAGGIE Administration Heparin Sodium (Porcine) 5,000 unit 08/24/21 21:33 08/25/21 11:13 Heparin 5,000 Unit/Ml Inj 1 Ml SUBCUT 5,000 unit Q12H MAGGIE Administration Ceftriaxone Sodium 1,000 mg/ 50 mls @ 100 mls/hr 08/24/21 20:00 08/24/21 20:12 Sodium Chloride IV 100 mls/hr Q24H MAGGIE Administration Protocol Lactated Ringer's 1,000 mls @ 125 mls/hr 08/25/21 09:00 08/25/21 13:00 Lactated Ringers IV 125 mls/hr .Q8H MAGGIE Administration Tamsulosin HCl 0.4 mg 08/25/21 09:00 08/25/21 11:13 Tamsulosin 0.4 Mg Capsule PO 0.4 mg DAILY MAGGIE Administration PFSH Acute PFSH: Medical History (Updated 08/25/21 @ 17:44 by Reed Gallagher MD) Bilateral hydronephrosis CKD (chronic kidney disease) COVID Detrusor dysfunction DNR (do not resuscitate) Epididymitis, right History of right inguinal hernia Intermittent self-catheterization of bladder Urinary retention Surgical History History of cataract surgery BILATERAL Family History Mother , AT AGE 76 Diabetes Father , AT AGE 67 CVA Stroke Social History Smoking and tobacco status: never smoked Alcohol intake: never Adopted: No Caregiver/support person: No Marital status: Current occupational status: retired History of recent travel: No Vitals/I&O/Wt Last Vital Signs Temp 97.7 F 08/24/21 11:57 Pulse 82 08/25/21 11:06 Resp 16 08/25/21 11:27 BP 110/60 08/25/21 08:35 Pulse Ox 96 08/25/21 11:06 08/24/21 08/25/21 08/25/21 22:59 06:59 14:59 Intake Total 1150 / 1150 Output Total 1400 / 1400 Balance -250 / -250 Weight last 48 hrs Weight 129 lb Physical Exam Narrative: EXAM NARRATIVE: Constitutional: Uncomfortable. Anxious, some confusion. HEENT atraumatic normocephalic Neck good range of motion no masses Abdomen: Soft. Bladder is nondistended. No CVA tenderness. Respiratory: Unlabored. No audible wheezes Cardiovascular: Regular rate and rhythm Peripheral vascular:No severe edema : Circumcised phallus, blood at the meatus, scrotum grossly normal. Skin: No jaundice Hematologic lymphatic: No obvious lymphadenopathy. No active bleeding other than the per urethra from catheter trauma Urinary Catheter Management: Buchanan: Cath Placed During This Visit: yes Urinary Catheter Date of Insertion: 08/24/21 Urinary Catheter Time of Insertion: 18:55 Data : 08/25/21 05:52 08/25/21 05:52 A&P Assessment and plan (1) Urethral trauma: Catheter forcibly withdrawn accidentally with urethral injury unable to catheterize blindly. Required flexible cystoscopy with guidewire placement and [place] tip catheter placement over guidewire. Good function confirmed Status: Acute (2) Urinary retention: Status: Acute (3) Bilateral hydronephrosis: [place] to be secondary to chronic bladder light obstruction possibly complicated by some bladder wall thickening. Status: Acute (4) Complication of Buchanan catheter: See #1 Status: Acute (5) Acute kidney injury superimposed on CKD: Status: Acute (6) COVID: Status: Acute (7) Elevated PSA: Not pursuing Status: Acute Consult Attestations Medical Necessity Statement: See attending Time Spent in Patient Care: Greater than 35 minutes Coding Level of Care Code Acute Furniture Upholsterer Apprentice for g Fwd Diagnoses Urinary retention R33.9 Elevated PSA R97.20 Bilateral hydronephrosis N13.30 Urethral trauma S37.30XA Complication of Buchanan catheter T83.9XXA Acute kidney injury superimposed on CKD N17.9; N18.9 COVID U07.1
--- NOTE | 2021-08-25 19:49 | PC.NURSE ---
THIS NURSE ASSISTED DR. BROOKE AT BEDSIDE TO PLACE BAIN CATHETER. THIS NURSE CHECKED ON PATIENT A FEW HOURS LATER AND NOTICED URINE WAS DARK RED. THIS NURSE MANUALLY IRRIGATED PATIENT X1 AND URINE IMPROVED AFTER THAT TO A DARK YELLOW WITH MINIMAL SEDIMENT.
[2021-08-25] MEDS: cefTRIAXone 1,000 MG in sodium chloride 0.9% (plus) 50 ML 100 MG IV (20:07)
[2021-08-26] VITALS (13 sets, daily range): BP systolic 105–154; BP diastolic 62–76; PULSE 87–107; RESP 16–18; TEMP 36.4–37.1; O2SAT 94–98
[2021-08-26] MEDS: ipratropium-albuterol 3 mL Neb INHALATION ×4 (03:11→21:19)
[2021-08-26] MEDS: lactated ringers 1,000 ML 125 ML IV ×2 (05:09→17:47)
[2021-08-26 06:12] LABS: Basophils % 0.2 %; Hematocrit 31.2 % (42.0-52.0); Hemoglobin 9.8 g/dL (11.7-16.6); Lymphocytes # 0.5 10^3/uL (0.8-4.8); Lymphocytes % 4.2 %; Mean Corpuscular HGB Conc 31.4 g/dL (30.0-36.0); Mean Corpuscular Hemoglobin 26.4 pg (28.0-34.0); Mean Corpuscular Volume 84.1 fl (80-94); Mean Platelet Volume 10.6 fL (7.4-10.4); Monocytes # 0.9 10^3/uL (0.2-0.9); Monocytes % 8.5 %; Neutrophils # 9.14 10^3/uL (1.8-7.7); Neutrophils % 85.1 %; Nucleated Red Blood Cells % 0 %; Platelet Count 224 10^3/cmm (130-400); Red Blood Count 3.71 10^6/uL (4.1-5.3); Red Cell Distribution Width 14.5 % (12.1-15.1); White Blood Count 10.7 10^3/uL (4.0-10.0)
[2021-08-26 06:34] LABS: Alanine Aminotransferase < 5 U/L (0-41); Albumin Level 3.1 g/dL (3.5-5.2); Alkaline Phosphatase 77 IU/L (40-130); Anion Gap 21.7 (5-19); Aspartate Amino Transferase 8 U/L (0-40); Calcium 8.9 mg/dL (8.5-10.5); Carbon Dioxide 20 mmol/L (22-29); Chloride 99 mmol/L (98-107); Globulin 3.1 g/dL (1.3-4.6); Glucose 108 mg/dL (65-115); Magnesium 2.4 mg/dL (1.7-2.3); Phosphorus 4.2 mg/dL (2.5-4.5); Potassium 3.7 mmol/L (3.5-5.1); Sodium 137 mmol/L (136-145); Total Bilirubin 0.4 mg/dL (0.15-1.2); Total Protein 6.2 g/dL (6.6-8.7)
[2021-08-26 07:41] LABS: Blood Urea Nitrogen 122 mg/dL (8-23); Osmolality Calculated 324 mOsm/kg (285-295)
[2021-08-26] MEDS: famotidine 20 mg/2 mL INJ IVP ×2 (08:08→21:10)
[2021-08-26] MEDS: finasteride 5 mg Tablet PO (08:08)
[2021-08-26] MEDS: tamsulosin 0.4 mg Capsule PO (08:08)
--- NOTE | 2021-08-26 08:08 | PM.PN ---
Subjective Subjective: Interval history: This is progress note August 25, 2021, patient was seen in the morning, he is just got up to use the bathroom, he ripped out his Buchanan catheter, with the balloon still inflated, there is blood all over the bathroom floor, he was being walked back to his bed by nursing staff and a lot of pain, he is alert to person, to place, not to time, when asked why did he take out his Buchanan catheter, he says that it was bothering him significantly, no flank pain, he has significant of bloody clots from his urethra meatus currently, nursing staff cleaned him up, and currently resting in bed, Vitals/I&O/Wt Last Vital Signs Temp 97.9 F 08/26/21 04:00 Pulse 101 H 08/26/21 04:00 Resp 18 08/26/21 04:00 BP 111/64 08/26/21 04:00 Pulse Ox 97 08/26/21 04:00 08/25/21 08/26/21 08/26/21 22:59 06:59 14:59 Intake Total 887.5 / 2037.5 1050 / 3087.5 Output Total 400 / 1800 625 / 2425 Balance 487.5 / 237.5 425 / 662.5 Weight last 48 hrs Weight 59.511 kg Weight 58.513 kg Physical Exam Narrative: EXAM NARRATIVE: Currently in pain, HENMT: COMMON NORMALS: normocephalic HEAD & SCALP: normocephalic Resp: COMMON NORMALS: normal respiratory effort, No retractions, No use of accessory muscles and clear to auscultation bilaterally AUSCULTATION: clear to auscultation bilaterally Cardio: COMMON NORMALS: regular rate, regular rhythm, S1 normal heart sound present and S2 normal heart sound present RATE: regular rate RHYTHM: regular rhythm HEART SOUNDS: S1 normal heart sound present and S2 normal heart sound present GI: COMMON NORMALS: Normal to inspection, nondistended, normoactive bowel sounds present, Soft to palpation and non-tender PALPATION: Yes Soft to palpation : OTHER: Blood at urethral meatus, Extremity: COMMON NORMALS: no pedal edema Psych: COMMON NORMALS: mental status grossly normal Urinary Catheter Management: Buchanan: Cath Placed During This Visit: yes Reason for Continuing Indwelling Catheter: Acute Urinary Retention or Obstruction Urinary Catheter Date of Insertion: 08/24/21 Urinary Catheter Time of Insertion: 18:55 Data : 08/26/21 04:54 08/26/21 04:54 Micro: Microbiology 08/24/21 21:57 MRSA Culture - Final Nose A&P Assessment and plan (1) Acute kidney injury superimposed on CKD: Status: Acute (2) COVID: Status: Acute (3) Intermittent self-catheterization of bladder: Status: Acute (4) Bilateral hydronephrosis: Status: Acute (5) High anion gap metabolic acidosis: Status: Acute (6) DNR (do not resuscitate): Status: Acute Plan 86-year-old man with past medical history of CKD, chronic urinary retention on intermittent self-catheterization, bilateral hydronephrosis presented to the ER with lethargy and weakness found to be in DIANE on CKD. CT abdomen pelvis 1. 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 2. Moderate right hip osteoarthritis. 3. Small left inguinal hernia containing omentum without bowel. 4. Right lower lobe airspace infiltrate. 5. Cholelithiasis. Buchanan catheterization, urinalysis, urine lites, urine creatinine, urine eosinophils. Normal saline at 50 cc/h while monitoring for fluid overload. No overt need of dialysis currently Nephrology on consult Urinary retention, has a history of urinary retention, with post renal azotemia in the past, required Buchanan catheter placement, significant DIANE, will require Buchanan catheter placement through outpatient follow-up with urology Traumatic removal of Buchanan catheter by patient will have Dr. Gallagher come by and take a look Continue home dose of finasteride and Flomax. COVID-19: Diagnosed 6 days ago. Covid positive report from primary care physician's office Isolation precaution. Saturating well on room air. Hold off on any treatment for now. Monitor inflammatory markers with CRP every 48 hours. CODE STATUS: Discussed with son/caregiver/DPOA in detail. DNR/DNI. Renal nondialysis diet. SCDs for DVT prophylaxis, heparin 5000 every 12 for DVT prophylaxis Famotidine for PUD [facility] Attestations Medical Necessity Statement*: Patient requires hospitalization for DIANE, urinary retention Coding Level of Care Code Acute Director Food And Beverage for Chg Fwd Diagnoses Acute kidney injury superimposed on CKD N17.9; N18.9 COVID U07.1 Intermittent self-catheterization of bladder Z78.9 Bilateral hydronephrosis N13.30 High anion gap metabolic acidosis E87.2 DNR (do not resuscitate) Z66
[2021-08-26] MEDS: heparin 5,000 unit/mL INJ 1 mL 5000 UNIT SUBCUT ×2 (08:35→21:11)
--- NOTE | 2021-08-26 09:38 | PC.CHAP ---
Pastoral Care Encounter/Spiritual Assessment Type of Contact [] Declined heading maker visit [] Patient/Family/Request visit [] Outpatient visit [] Follow-up visit [] Physician referral [] Code/Alert [x] Routine visit [] Staff referral [] Actively dying [] Patient sleeping [] Family support [] [] Out of room [] Palliative care [] [] Receiving care in room [] Pre-surgical visit [] Trauma [] Long length of stay [] ICU visit [] Other: Relational/Emotional Strength [x] Patient feels connected with others/family/visitors/staff [] Distress [] Loneliness/isolation [] Abandonment Spirituality of Patient [x] Person of Sanna [x] Attends Yarsanism of their Sanna [x] Believes in Prayer [] Reads Bible or Moravian materials [] There are Spiritual issues to be addressed Plumber Apprentice Interventions [x] Prayer [x] Active listening x] Non-anxious presence [] Spiritual/emotional support [] Crisis/trauma care [] Spiritual counseling [] Bereavement support [] Provided bereavement packet [] Provided Bible/devotional materials [] Provided toy/stuffed animal, coloring book to patient or family member [] Provided Communion [] Anointing/[place] [] Salvation [x] Completed spiritual assessment [] Other: Impact on Illness or Injury [] Angry [] Fearful [] Anxious [] Often cries [] Exhaustion [] Unable to work [] Unable to attend druze [] Unable to walk/stand [] Unable to read [] Unable to drive [] Unable to eat/drink [] Unable to sleep [] Unable to be with family [] Patient intubated [] Other: Summary Time spent with patient 10 mikn
--- NOTE | 2021-08-26 09:56 | PM.PN ---
Subjective Subjective: Interval history: confused, more alert. walking w/ assistance. has a gupta. decreasing hematuria. Medications: Reviewed: Yes Medication Review Details: Current Medications Acetaminophen (Acetaminophen 325 Mg Tablet) 650 mg PO Q6H PRN PRN Reason: Mild/Mod Pain Or Temp >/= 101 Albuterol/Ipratropium (Ipratropium-Albuterol 3 Ml Neb) 3 ml INHALATION Q6H.RESPIRATORY MAGGIE Last Admin: 08/26/21 09:48 Dose: 3 ml Documented by: Bisacodyl (Bisacodyl 5 Mg Tablet) 10 mg PO DAILY PRN; Protocol PRN Reason: Constipation (see protocol) Famotidine (Famotidine 20 Mg/2 Ml Inj) 20 mg IVP Q12H MAGGIE Last Admin: 08/26/21 08:08 Dose: 20 mg Documented by: Finasteride (Finasteride 5 Mg Tablet) 5 mg PO DAILY [facility] Last Admin: 08/26/21 08:08 Dose: 5 mg Documented by: Heparin Sodium (Porcine) (Heparin 5,000 Unit/Ml Inj 1 Ml) 5,000 unit SUBCUT Q12H MAGGIE Last Admin: 08/26/21 08:35 Dose: 5,000 unit Documented by: Ceftriaxone Sodium 1,000 mg/ (Sodium Chloride) 50 mls @ 100 mls/hr IV Q24H MAGGIE; Protocol Last Infusion: 08/26/21 00:44 Dose: Infused Documented by: Lactated Ringer's (Lactated Ringers) 1,000 mls @ 125 mls/hr IV .Q8H [facility] Last Admin: 08/26/21 05:09 Dose: 125 mls/hr Documented by: Lactulose (Lactulose Oral Liq 20 Gm/30 Ml Udc) 10 gm PO DAILY PRN; Protocol PRN Reason: Constipation (see protocol) Morphine Sulfate (Morphine 4 Mg/Ml Sdv 1 Ml) 2 mg IVP Q4H PRN PRN Reason: SEVERE PAIN Ondansetron HCl (Ondansetron 2 Mg/Ml Sdv 2 Ml) 4 mg IVP Q8H PRN PRN Reason: vomiting, or N/V if npo Tamsulosin HCl (Tamsulosin 0.4 Mg Capsule) 0.4 mg PO DAILY [facility] Last Admin: 08/26/21 08:08 Dose: 0.4 mg Documented by: Vitals/I&O/Wt Last Vital Signs Temp 97.5 F L 08/26/21 08:00 Pulse 89 08/26/21 09:53 Resp 16 08/26/21 09:48 BP 125/72 08/26/21 08:00 Pulse Ox 97 08/26/21 09:48 08/25/21 08/26/21 08/26/21 22:59 06:59 14:59 Intake Total 887.5 / 2037.5 1050 / 3087.5 Output Total 400 / 1800 625 / 2425 Balance 487.5 / 237.5 425 / 662.5 Weight last 48 hrs Weight 59.511 kg Weight 58.513 kg Physical Exam Narrative: EXAM NARRATIVE: elderly man, improving strength, poor hearing, NARD vs noted heent- nc/at, eomi neck supple lungs- clear b/l heart reg abd soft, nt, nd, + bs ext no edema neuro- confused, oriented x 1+ Urinary Catheter Management: Gupta: Cath Placed During This Visit: yes Reason for Continuing Indwelling Catheter: Acute Urinary Retention or Obstruction Urinary Catheter Date of Insertion: 08/24/21 Urinary Catheter Time of Insertion: 18:55 Data : 08/26/21 04:54 08/26/21 04:54 Micro: Microbiology 08/24/21 21:57 MRSA Culture - Final Nose A&P Assessment and plan (1) Acute kidney injury superimposed on CKD: 86 yr old man self cath, chronic hydronephrosis, CKD stage 4- baseline cr 4 mg/dl 1. DIANE- d dx is Prerenal vs aTN vs COVID nephropathy vs progression of underlying renal disease - ua 3+ blood, 2+ LE, 5-10 rbc, > 100 wbc, urine lytes -kidney ct scan- . 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 -has a gupta. appreciate urology input -slow improvement cr. god uop -monitor uop and chemistries- attempting to avoid HD- given his age and confusion 2. anemia- tsat 11% await ferritin 3. inc AGMA- from DIANE. -improved w/ ivf 4. hyponatremia- improving 5. hyperuricemia- allopurinol BP okay seen and examined w/ rN- telehealth visit time spent 25 min Status: Acute Plan see above Attestations Medical Necessity Statement*: diane Time Spent in Patient Care: 16 - 35 minutes (>than 50% of time spent in counselling and/or direct pt care on unit). Coding Level of Care Code Acute Surgical Assistant Certified for Luciag Fwd Diagnoses Acute kidney injury superimposed on CKD N17.9; N18.9
--- NOTE | 2021-08-26 14:42 | PM.PN ---
Subjective Subjective: Interval history: Urology follow-up More confused today. Urine is remaining clear though. Has not been pulling on his catheter as far as I can tell. Denies any chest pain. He thinks he is somewhere other than the hospital. Medications: Reviewed: Yes Vitals/I&O/Wt Last Vital Signs Temp 98.1 F 08/26/21 12:00 Pulse 87 08/26/21 14:42 Resp 16 08/26/21 14:38 BP 128/70 08/26/21 12:00 Pulse Ox 94 08/26/21 14:38 08/25/21 08/26/21 08/26/21 22:59 06:59 14:59 Intake Total 887.5 / 2037.5 1050 / 3087.5 360 / 360 Output Total 400 / 1800 625 / 2425 Balance 487.5 / 237.5 425 / 662.5 360 / 360 Weight last 48 hrs Weight 131 lb 3.2 oz Physical Exam Narrative: EXAM NARRATIVE: Constitutional: Much more comfortable today.? Possibly some increased anxiety and confusion. HEENT atraumatic normocephalic Neck good range of motion no masses Abdomen: Soft.? Bladder is nondistended.? Respiratory: Unlabored.? No audible wheezes : Circumcised phallus, blood at the meatus, scrotum grossly normal. Urinary Catheter Management: Buchanan: Cath Placed During This Visit: yes Reason for Continuing Indwelling Catheter: Acute Urinary Retention or Obstruction Urinary Catheter Date of Insertion: 08/24/21 Urinary Catheter Time of Insertion: 18:55 Data : 08/26/21 04:54 08/26/21 04:54 Micro: Microbiology 08/24/21 18:56 Urine Culture - Preliminary Urine Catheterized Gram Negative Rods 08/24/21 21:57 MRSA Culture - Final Nose A&P Assessment and plan (1) Complication of Buchanan catheter: Related to forcible withdrawal. See below Status: Acute (2) Urethral trauma: Still having some oozing around the catheter but the catheter is functioning well. Nursing staff irrigated earlier with good function. No clots. Reviewed keeping the catheter secured to the leg safely. Status: Acute Attestations Medical Necessity Statement*: See attending Coding Level of Care Code Acute Urban Design Consultant for benigno Weston Diagnoses Complication of Buchanan catheter T83.9XXA Urethral trauma S37.30XA
--- NOTE | 2021-08-26 17:21 | PM.PN ---
Subjective Subjective: Interval history: This morning patient was seen, he is alert to person, to place, not to time, he follows all commands, no episodes of agitation overnight, he does complain of penile pain, continues to have some mild bleeding from his urethral meatus, Vitals/I&O/Wt Last Vital Signs Temp 98.4 F 08/26/21 15:42 Pulse 107 H 08/26/21 15:42 Resp 18 08/26/21 15:42 BP 124/62 08/26/21 15:42 Pulse Ox 96 08/26/21 15:42 08/26/21 08/26/21 08/26/21 06:59 14:59 22:59 Intake Total 1050 / 3087.5 360 / 360 Output Total 625 / 2425 800 / 800 Balance 425 / 662.5 360 / 360 -800 / -440 Weight last 48 hrs Weight 59.511 kg Physical Exam Const: COMMON NORMALS: no acute distress OTHER: Alert to person, to place, not to time Resp: COMMON NORMALS: normal respiratory effort, No retractions, No use of accessory muscles and clear to auscultation bilaterally AUSCULTATION: clear to auscultation bilaterally Cardio: COMMON NORMALS: regular rate, regular rhythm, S1 normal heart sound present and S2 normal heart sound present RATE: regular rate RHYTHM: regular rhythm HEART SOUNDS: S1 normal heart sound present and S2 normal heart sound present GI: COMMON NORMALS: Normal to inspection, nondistended, normoactive bowel sounds present, Soft to palpation, non-tender and No hepatosplenomegaly present PALPATION: Yes Soft to palpation and Yes No hepatosplenomegaly present Extremity: COMMON NORMALS: no pedal edema Urinary Catheter Management: Buchanan: Cath Placed During This Visit: yes Reason for Continuing Indwelling Catheter: Acute Urinary Retention or Obstruction Urinary Catheter Date of Insertion: 08/24/21 Urinary Catheter Time of Insertion: 18:55 Data : 08/26/21 04:54 08/26/21 04:54 Micro: Microbiology 08/24/21 18:56 Urine Culture - Preliminary Urine Catheterized Gram Negative Rods 08/24/21 21:57 MRSA Culture - Final Nose A&P Assessment and plan (1) Acute kidney injury superimposed on CKD: Status: Acute (2) COVID: Status: Acute (3) Intermittent self-catheterization of bladder: Status: Acute (4) Bilateral hydronephrosis: Status: Acute (5) High anion gap metabolic acidosis: Status: Acute (6) DNR (do not resuscitate): Status: Acute Plan 86-year-old man with past medical history of CKD, chronic urinary retention on intermittent self-catheterization, bilateral hydronephrosis presented to the ER with lethargy and weakness found to be in DIANE on CKD. Acute kidney injury on CKD Creatinine 7.3 CT abdomen pelvis 1. 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 2. Moderate right hip osteoarthritis. 3. Small left inguinal hernia containing omentum without bowel. 4. Right lower lobe airspace infiltrate. 5. Cholelithiasis. Buchanan catheterization, Currently on LR No overt need of dialysis currently Nephrology on consult Urinary retention, has a history of urinary retention, with post renal azotemia in the past, required Buchanan catheter placement, significant DIANE, will require Buchanan catheter placement with outpatient follow-up with urology Traumatic removal of Buchanan catheter, replaced by Dr. Gallagher continue to monitor Continue home dose of finasteride and Flomax. COVID-19: Diagnosed 6 days ago. Covid positive report from primary care physician's office Isolation precaution. Saturating well on room air. Hold off on any treatment for now. Monitor inflammatory markers with CRP every 48 hours. CODE STATUS: Discussed with son/caregiver/DPOA in detail. DNR/DNI. Renal nondialysis diet. SCDs for DVT prophylaxis, heparin 5000 every 12 for DVT prophylaxis Famotidine for PUD prophylaxis Admit to [facility] Attestations Medical Necessity Statement*: Patient requires hospitalization for DIANE, acute urinary retention, possible UTI Coding Level of Care Code Acute Environmental Field Professional for g Fwd Diagnoses Acute kidney injury superimposed on CKD N17.9; N18.9 COVID U07.1 Intermittent self-catheterization of bladder Z78.9 Bilateral hydronephrosis N13.30 High anion gap metabolic acidosis E87.2 DNR (do not resuscitate) Z66
[2021-08-26] MEDS: cefTRIAXone 1,000 MG in sodium chloride 0.9% (plus) 50 ML 100 MG IV (21:09)
[2021-08-27] VITALS (11 sets, daily range): BP systolic 112–143; BP diastolic 65–73; PULSE 82–93; RESP 14–22; TEMP 36.3–37; O2SAT 93–98
[2021-08-27] MEDS: lactated ringers 1,000 ML 125 ML IV ×2 (01:26→18:26)
--- NOTE | 2021-08-27 04:52 | PC.NURSE ---
Patient consistently trying to stand up and bed alarm going off. Re-directed numerous times. Patient states he is not getting out of bed but have found him standing next to bed. Will continue to monitor and use bed alarm.
--- NOTE | 2021-08-27 04:54 | PC.NURSE ---
Frequent safety and comfort rounds continue. Orders and/or nursing care completed as indicated. Patient monitored for response to intervention and treatment(s). Education provided includes staying in bed and gupta catheter indications. . Patient and/or b2b sales representative is too confused to understand at most times. Will continue to monitor.
[2021-08-27 05:52] LABS: Basophils % 0.1 %; Eosinophils % 0.4 %; Hematocrit 29.5 % (42.0-52.0); Hemoglobin 9.3 g/dL (11.7-16.6); Lymphocytes # 0.5 10^3/uL (0.8-4.8); Mean Corpuscular HGB Conc 31.5 g/dL (30.0-36.0); Mean Corpuscular Hemoglobin 26.7 pg (28.0-34.0); Mean Corpuscular Volume 84.8 fl (80-94); Mean Platelet Volume 10.3 fL (7.4-10.4); Monocytes # 0.7 10^3/uL (0.2-0.9); Monocytes % 9.2 %; Neutrophils # 6.38 10^3/uL (1.8-7.7); Neutrophils % 81.1 %; Nucleated Red Blood Cells % 0 %; Platelet Count 232 10^3/cmm (130-400); Red Blood Count 3.48 10^6/uL (4.1-5.3); Red Cell Distribution Width 14.7 % (12.1-15.1); White Blood Count 7.9 10^3/uL (4.0-10.0)
[2021-08-27 06:12] LABS: Alanine Aminotransferase < 5 U/L (0-41); Alkaline Phosphatase 73 IU/L (40-130); Aspartate Amino Transferase 11 U/L (0-40); Calcium 8.1 mg/dL (8.5-10.5); Carbon Dioxide 22 mmol/L (22-29); Chloride 104 mmol/L (98-107); Glucose 87 mg/dL (65-115); Magnesium 2.4 mg/dL (1.7-2.3); Osmolality Calculated 327 mOsm/kg (285-295); Phosphorus 4.1 mg/dL (2.5-4.5); Sodium 143 mmol/L (136-145); Total Bilirubin 0.3 mg/dL (0.15-1.2)
[2021-08-27 06:37] LABS: Anion Gap 20.7 (5-19); Blood Urea Nitrogen 100 mg/dL (8-23); Potassium 3.7 mmol/L (3.5-5.1)
[2021-08-27] MEDS: finasteride 5 mg Tablet PO (08:03)
[2021-08-27] MEDS: allopurinol 100 mg Tablet PO (08:04)
[2021-08-27] MEDS: famotidine 20 mg/2 mL INJ IVP ×2 (08:04→21:11)
[2021-08-27] MEDS: heparin 5,000 unit/mL INJ 1 mL 5000 UNIT SUBCUT ×2 (08:04→21:10)
[2021-08-27] MEDS: tamsulosin 0.4 mg Capsule PO (08:04)
--- NOTE | 2021-08-27 09:07 | PM.PN ---
Subjective Subjective: Interval history: more awake. still confused. no sob. is eating well Medications: Reviewed: Yes Medication Review Details: Current Medications Acetaminophen (Acetaminophen 325 Mg Tablet) 650 mg PO Q6H PRN PRN Reason: Mild/Mod Pain Or Temp >/= 101 Albuterol/Ipratropium (Ipratropium-Albuterol 3 Ml Neb) 3 ml INHALATION Q6H.RESPIRATORY MAGGIE Last Admin: 08/27/21 03:20 Dose: Not Given Documented by: Allopurinol (Allopurinol 100 Mg Tablet) 100 mg PO DAILY [facility] Last Admin: 08/27/21 08:04 Dose: 100 mg Documented by: Bisacodyl (Bisacodyl 5 Mg Tablet) 10 mg PO DAILY PRN; Protocol PRN Reason: Constipation (see protocol) Famotidine (Famotidine 20 Mg/2 Ml Inj) 20 mg IVP Q12H [facility] Last Admin: 08/27/21 08:04 Dose: 20 mg Documented by: Finasteride (Finasteride 5 Mg Tablet) 5 mg PO DAILY [facility] Last Admin: 08/27/21 08:03 Dose: 5 mg Documented by: Heparin Sodium (Porcine) (Heparin 5,000 Unit/Ml Inj 1 Ml) 5,000 unit SUBCUT Q12H [facility]IE Last Admin: 08/27/21 08:04 Dose: 5,000 unit Documented by: Ceftriaxone Sodium 1,000 mg/ (Sodium Chloride) 50 mls @ 100 mls/hr IV Q24H [facility]; Protocol Last Infusion: 08/26/21 22:47 Dose: Infused Documented by: Lactated Ringer's (Lactated Ringers) 1,000 mls @ 100 mls/hr IV .Q10H [facility] Last Admin: 08/27/21 01:26 Dose: 125 mls/hr Documented by: Lactulose (Lactulose Oral Liq 20 Gm/30 Ml Udc) 10 gm PO DAILY PRN; Protocol PRN Reason: Constipation (see protocol) Morphine Sulfate (Morphine 4 Mg/Ml Sdv 1 Ml) 2 mg IVP Q4H PRN PRN Reason: SEVERE PAIN Ondansetron HCl (Ondansetron 2 Mg/Ml Sdv 2 Ml) 4 mg IVP Q8H PRN PRN Reason: vomiting, or N/V if npo Tamsulosin HCl (Tamsulosin 0.4 Mg Capsule) 0.4 mg PO DAILY [facility] Last Admin: 08/27/21 08:04 Dose: 0.4 mg Documented by: Vitals/I&O/Wt Last Vital Signs Temp 97.7 F 08/27/21 07:54 Pulse 88 08/27/21 07:54 Resp 18 08/27/21 07:54 BP 121/70 08/27/21 07:54 Pulse Ox 96 08/27/21 07:54 08/26/21 08/27/21 08/27/21 22:59 06:59 14:59 Intake Total 50 / 1410 1156.25 / 2566.25 Output Total 800 / 800 1350 / 2150 Balance -750 / 610 -193.75 / 416.25 Weight last 48 hrs Weight 59.239 kg Weight 59.511 kg Physical Exam Narrative: EXAM NARRATIVE: elderly man, improving strength, poor hearing, NARD vs noted heent- nc/at, eomi neck supple lungs- clear b/l heart reg abd soft, nt, nd, + bs ext no edema neuro- confused, oriented x 1+ Urinary Catheter Management: Gupta: Cath Placed During This Visit: yes Reason for Continuing Indwelling Catheter: Accurate Measurement of Urinary Output in Critically Ill Patients Urinary Catheter Date of Insertion: 08/24/21 Urinary Catheter Time of Insertion: 18:55 Data : 08/27/21 05:00 08/27/21 05:00 Micro: Microbiology 08/24/21 18:56 Urine Culture - Preliminary Urine Catheterized Gram Negative Rods A&P Assessment and plan (1) Acute kidney injury superimposed on CKD: 86 yr old man self cath, chronic hydronephrosis, CKD stage 4- baseline cr 4 mg/dl 1. DIANE- d dx is Prerenal vs aTN vs COVID nephropathy vs progression of underlying renal disease - ua 3+ blood, 2+ LE, 5-10 rbc, > 100 wbc, urine lytes -kidney ct scan- . 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 -has a gupta. appreciate urology input -cr improving. god uop -monitor uop and chemistries- attempting to avoid HD- given his age and confusion -dec ivf, and hope to d/c ivf by tonight or tomorrow 2. anemia- tsat 11% await ferritin 3. inc AGMA- from DIANE. -improved w/ ivf 4. hyperuricemia- allopurinol BP okay seen and examined w/ rN- telehealth visit time spent 25 min Status: Acute Plan see above Attestations Medical Necessity Statement*: improving diane -infection per medicine Time Spent in Patient Care: 16 - 35 minutes (>than 50% of time spent in counselling and/or direct pt care on unit). Coding Level of Care Code Acute Rolling Mill Operator Helper for Bindu Weston Diagnoses Acute kidney injury superimposed on CKD N17.9; N18.9
[2021-08-27] MEDS: ipratropium-albuterol 3 mL Neb INHALATION ×3 (09:45→21:10)
--- NOTE | 2021-08-27 10:07 | PM.PN ---
Subjective Subjective: Interval history: Urine clearing adequately. Reviewed with hospitalist. Patient continues to improve somewhat overall but still confused. Recommendations would be to maintain Buchanan catheter now and at discharge with plan for follow-up on outpatient basis to potentially resume self-catheterization, maintain Buchanan catheter, convert to suprapubic tube as a long-term strategy for bladder management. In the past he had done a reasonably good job with self-catheterization but if this is his new baseline that would not be an effective strategy. It will be important not to maintain the catheter for now to allow for healing from the injury incurred with forcible catheter withdrawal. Creatinine is decreasing down to 6.3 today. Vitals/I&O/Wt Last Vital Signs Temp 97.7 F 08/27/21 07:54 Pulse 89 08/27/21 09:53 Resp 18 08/27/21 09:47 BP 121/70 08/27/21 07:54 Pulse Ox 98 08/27/21 09:47 08/26/21 08/27/21 08/27/21 22:59 06:59 14:59 Intake Total 50 / 1410 1156.25 / 2566.25 Output Total 800 / 800 1350 / 2150 Balance -750 / 610 -193.75 / 416.25 Weight last 48 hrs Weight 130 lb 9.6 oz Weight 131 lb 3.2 oz Physical Exam Narrative: EXAM NARRATIVE: Constitutional: Much more comfortable today.? Still with confusion. HEENT atraumatic normocephalic Neck good range of motion Abdomen: Soft.? Bladder is nondistended.? Respiratory: Unlabored.? No audible wheezes : Circumcised phallus, blood at the meatus, scrotum grossly normal, urine per catheter is clear to light pink Skin: Fragile. No jaundice Psych: Less agitated. Still confused Extremity: Good range of motion Urinary Catheter Management: Buchanan: Cath Placed During This Visit: yes Reason for Continuing Indwelling Catheter: Accurate Measurement of Urinary Output in Critically Ill Patients Urinary Catheter Date of Insertion: 08/24/21 Urinary Catheter Time of Insertion: 18:55 Data : 08/27/21 05:00 08/27/21 05:00 Micro: Microbiology 08/24/21 18:56 Urine Culture - Preliminary Urine Catheterized Gram Negative Rods A&P Assessment and plan (1) Complication of Buchanan catheter: Related to forcible withdrawal. Catheter still functioning well after replacement over guidewire with aid of cystoscopy Status: Acute (2) Urethral trauma: He will need the catheter in at discharge to allow for further healing before voiding trial. I can do that in my office on outpatient basis with repeat cystoscopy to assess for healing. Status: Acute (3) Urinary retention: In the past he was successful with SCIC at least for the most part. With this downturn it was apparent that his management of his bladder was not going as well. He may now require indwelling Buchanan catheter. Would consider suprapubic tube long-term as an option for catheter/bladder management but for now the Buchanan catheter will least allow for healing and if he does recover back to his baseline to establish an effective SCIC program again potentially. 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
--- NOTE | 2021-08-27 14:03 | PM.PN ---
Subjective Subjective: Interval history: Patient was seen this morning, he is alert to person, not to place, not time, is a bit more drowsy this morning, had episodes of agitation overnight, but redirectable, afebrile overnight Vitals/I&O/Wt Last Vital Signs Temp 97.5 F L 08/27/21 11:33 Pulse 86 08/27/21 11:33 Resp 14 08/27/21 11:33 BP 112/65 08/27/21 11:33 Pulse Ox 96 08/27/21 11:33 08/26/21 08/27/21 08/27/21 22:59 06:59 14:59 Intake Total 50 / 1410 1156.25 / 2566.25 Output Total 800 / 800 1350 / 2150 Balance -750 / 610 -193.75 / 416.25 Weight last 48 hrs Weight 59.239 kg Weight 59.511 kg Physical Exam Const: COMMON NORMALS: no acute distress EXAM LIMITATIONS: altered mental status Resp: COMMON NORMALS: normal respiratory effort, No retractions, No use of accessory muscles and clear to auscultation bilaterally AUSCULTATION: clear to auscultation bilaterally Cardio: COMMON NORMALS: regular rate, regular rhythm, S1 normal heart sound present and S2 normal heart sound present RATE: regular rate RHYTHM: regular rhythm HEART SOUNDS: S1 normal heart sound present and S2 normal heart sound present GI: COMMON NORMALS: Normal to inspection, nondistended, normoactive bowel sounds present, Soft to palpation, non-tender and No hepatosplenomegaly present PALPATION: Yes Soft to palpation and Yes No hepatosplenomegaly present Extremity: COMMON NORMALS: no pedal edema Urinary Catheter Management: Buchanan: Cath Placed During This Visit: yes Reason for Continuing Indwelling Catheter: Accurate Measurement of Urinary Output in Critically Ill Patients Urinary Catheter Date of Insertion: 08/24/21 Urinary Catheter Time of Insertion: 18:55 Data : 08/27/21 05:00 08/27/21 05:00 Micro: Microbiology 08/24/21 18:56 Urine Culture - Final Urine Catheterized Klebsiella pneumoniae A&P Assessment and plan (1) Acute kidney injury superimposed on CKD: Status: Acute (2) COVID: Status: Acute (3) Intermittent self-catheterization of bladder: Status: Acute (4) Bilateral hydronephrosis: Status: Acute (5) High anion gap metabolic acidosis: Status: Acute (6) DNR (do not resuscitate): Status: Acute Plan 86-year-old man with past medical history of CKD, chronic urinary retention on intermittent self-catheterization, bilateral hydronephrosis presented to the ER with lethargy and weakness found to be in DIANE on CKD. Acute kidney injury on CKD Creatinine 6.3 CT abdomen pelvis 1. 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 2. Moderate right hip osteoarthritis. 3. Small left inguinal hernia containing omentum without bowel. 4. Right lower lobe airspace infiltrate. 5. Cholelithiasis. Buchanan catheter in place Currently on LR No overt need of dialysis currently Nephrology on consult Urinary retention, has a history of urinary retention, with post renal azotemia in the past, required Bcuhanan catheter placement, significant DIANE, will require Buchanan catheter placement with outpatient follow-up with urology Traumatic removal of Buchanan catheter, replaced by Dr. Gallagher, continue to monitor Continue home dose of finasteride and Flomax. Altered mental status, likely secondary to underlying dementia, prolonged hospitalization, continue to monitor COVID-19: Diagnosed 6 days ago. Covid positive report from primary care physician's office Isolation precaution. Saturating well on room air. Hold off on any treatment for now. Monitor inflammatory markers with CRP every 48 hours. CODE STATUS: Discussed with son/caregiver/DPOA in detail. DNR/DNI. Renal nondialysis diet. SCDs for DVT prophylaxis, heparin 5000 every 12 for DVT prophylaxis Famotidine for PUD prophylaxis [facility] Attestations Medical Necessity Statement*: Patient requires hospitalization for acute kidney injury, acute urinary retention Coding Level of Care Code Acute Graduate Intern for g Fwd Diagnoses Acute kidney injury superimposed on CKD N17.9; N18.9 COVID U07.1 Intermittent self-catheterization of bladder Z78.9 Bilateral hydronephrosis N13.30 High anion gap metabolic acidosis E87.2 DNR (do not resuscitate) Z66
--- NOTE | 2021-08-27 15:25 | PC.SLP ---
CARDER BLANKETS attempted to assess pt, however, the pt was not able to maintain alertness, and did not want to participate at the time of the assessment attempt.
[2021-08-27] MEDS: cefTRIAXone 1,000 MG in sodium chloride 0.9% (plus) 50 ML 100 MG IV (19:32)
[2021-08-27] MEDS: LORazepam 2 mg/mL INJ 1 mL 0.5 MG IVP (21:10)
[2021-08-28] VITALS (9 sets, daily range): BP systolic 111–144; BP diastolic 62–72; PULSE 80–99; RESP 15–18; TEMP 36.5–37.1; O2SAT 94–98
[2021-08-28] MEDS: LORazepam 2 mg/mL INJ 1 mL 0.5 MG IVP (02:27)
[2021-08-28] MEDS: ipratropium-albuterol 3 mL Neb INHALATION ×3 (03:08→15:51)
[2021-08-28] MEDS: lactated ringers 1,000 ML 125 ML IV (03:15)
[2021-08-28 06:18] LABS: Alanine Aminotransferase 6 U/L (0-41); Albumin Level 3.1 g/dL (3.5-5.2); Alkaline Phosphatase 71 IU/L (40-130); Anion Gap 20.9 (5-19); Aspartate Amino Transferase 10 U/L (0-40); Blood Urea Nitrogen 80 mg/dL (8-23); Calcium 7.9 mg/dL (8.5-10.5); Carbon Dioxide 22 mmol/L (22-29); Chloride 106 mmol/L (98-107); Globulin 2.2 g/dL (1.3-4.6); Glucose 81 mg/dL (65-115); Magnesium 2.1 mg/dL (1.7-2.3); Osmolality Calculated 323 mOsm/kg (285-295); Phosphorus 3.9 mg/dL (2.5-4.5); Potassium 3.9 mmol/L (3.5-5.1); Sodium 145 mmol/L (136-145); Total Bilirubin 0.3 mg/dL (0.15-1.2); Total Protein 5.3 g/dL (6.6-8.7); Uric Acid 10.7 mg/dL (3.4-7.0)
[2021-08-28 06:49] LABS: Glucose Point of Care 86 mg/dL (70-110)
--- NOTE | 2021-08-28 07:09 | PM.PN ---
Subjective Subjective: Interval history: Urology follow-up: Still confused this morning. Catheter seems to be functioning well. Denies any genitourinary or lower abdominal pain. Labs reviewed. Creatinine continues to decline. Abdomen is soft. Medications: Reviewed: Yes Vitals/I&O/Wt Last Vital Signs Temp 98.8 F 08/28/21 04:00 Pulse 99 08/28/21 04:00 Resp 16 08/28/21 04:00 BP 144/66 08/28/21 04:00 Pulse Ox 98 08/28/21 04:00 08/27/21 08/28/21 08/28/21 22:59 06:59 14:59 Intake Total 1550 / 2550 Output Total 1999 400 / 2400 Balance -1999 1150 / 150 Weight last 48 hrs Weight 130 lb 9.6 oz Physical Exam Narrative: EXAM NARRATIVE: Constitutional: Confused. No acute distress Abdomen: Soft.? Bladder is nondistended.? Respiratory: Unlabored.? No audible wheezes : scrotum grossly normal, urine per catheter is clear yellow. Skin: Fragile.? No jaundice Psych: Still with some agitation Extremity: Good range of motion Urinary Catheter Management: Buchanan: Cath Placed During This Visit: yes Reason for Continuing Indwelling Catheter: Acute Urinary Retention or Obstruction Urinary Catheter Date of Insertion: 08/24/21 Urinary Catheter Time of Insertion: 18:55 Data : 08/27/21 05:00 08/28/21 05:10 Micro: Microbiology 08/24/21 18:56 Urine Culture - Final Urine Catheterized Klebsiella pneumoniae A&P Assessment and plan (1) Urethral trauma: Doing well with management the indwelling Buchanan catheter He will need the catheter in at discharge to allow for further healing before voiding trial.? Remainder of eval in office. Status: Acute (2) Complication of Buchanan catheter: Forcible withdrawal with urethral trauma Status: Acute (3) Urinary retention: Chronic urinary retention. Historically managed with [facility] with +/- results Status: Acute (4) Detrusor dysfunction: Status: Acute Attestations Medical Necessity Statement*: See attending Coding Level of Care Code Acute Apprentice Cosmetologist for Bindu Fwd Diagnoses Urethral trauma S37.30XA Complication of Buchanan catheter T83.9XXA Urinary retention R33.9 Detrusor dysfunction N31.8
--- NOTE | 2021-08-28 08:51 | PC.SOCIAL ---
IMM UPDATED IMM dated and initialed and copy given to patient
--- NOTE | 2021-08-28 09:44 | P.PN_ITS ---
Subjective Subjective: Interval history: No new issues with Jose today. He remains somewhat drowsy but is arousable when spoken to. Buchanan catheter remains in, good drainage, clear urine. Output of 2.4 L. Intermittently eating and drinking. Vitals/I&O/Wt Last Vital Signs Temp 98.6 F 08/28/21 08:00 Pulse 84 08/28/21 09:31 Resp 18 08/28/21 09:31 BP 114/62 08/28/21 08:00 Pulse Ox 96 08/28/21 09:31 08/27/21 08/28/21 08/28/21 22:59 06:59 14:59 Intake Total 1550 / 2550 Output Total 1999 400 / 2400 Balance -1999 / 1150 / 150 Weight last 48 hrs Weight 59.239 kg Physical Exam Narrative: EXAM NARRATIVE: Constitutional: Awake, comfortable HEENT: Wet mucosa, no jvp, non icteric Lungs: Bilaterally clear without discernible wheeze or rales in all lung zones CVS: S1 S2, no murmurs Abdo: Soft, BS ok Ext 4: Minimal edema, peripheral perfusion with no cyanosis Neurological: Grossly non-focal Urinary Catheter Management: Buchanan: Cath Placed During This Visit: yes Reason for Continuing Indwelling Catheter: Acute Urinary Retention or Obstruction Urinary Catheter Date of Insertion: 08/24/21 Urinary Catheter Time of Insertion: 18:55 Data : 08/27/21 05:00 08/28/21 05:10 Micro: Microbiology 08/24/21 18:56 Urine Culture - Final Urine Catheterized Klebsiella pneumoniae A&P Assessment and plan (1) Acute kidney injury superimposed on CKD: Status: Acute Plan 1. Acute kidney injury Consistent with obstructive uropathy and is now making an improvement. Creatinine 4.1 back in January of last year, I wonder if this is his baseline. This is only a GFR of 14 mL/min Cont ivf until he has a good oral intake Dose medications for GFR less than 15 Avoid usual nephrotoxic agents 2. Obstructive uropathy Follow-up with Dr. Gallagher following discharge Currently on finasteride and Flomax We will leave Buchanan catheter in following discharge. Thank you for consultation, it is a pleasure to follow these cases with you Exam and interview performed with aid of bedside RN using telemedicine Time spent 20 min inc > 50% of time in face to face counseling Colten Thompson MD [facility] [phone] Attestations Medical Necessity Statement*: eval for DIANE Coding Level of Care Code Acute Dental Assistant Instructor for Chg Fwd Diagnoses Acute kidney injury superimposed on CKD N17.9; N18.9
--- NOTE | 2021-08-28 10:31 | PC.SLP ---
Patient would not wake up for swallowing evaluation.
[2021-08-28] MEDS: finasteride 5 mg Tablet PO (10:34)
[2021-08-28] MEDS: tamsulosin 0.4 mg Capsule PO (10:34)
[2021-08-28] MEDS: heparin 5,000 unit/mL INJ 1 mL 5000 UNIT SUBCUT ×2 (10:35→20:55)
[2021-08-28] MEDS: famotidine 20 mg/2 mL INJ IVP ×2 (10:35→20:54)
[2021-08-28] MEDS: allopurinol 100 mg Tablet PO (10:35)
[2021-08-28 12:20] LABS: Glucose Point of Care 143 mg/dL (70-110)
--- NOTE | 2021-08-28 13:28 | PC.PT ---
Pt unable to arouse this AM, per conversation with RN, RT, and SENIOR GAMES TECHNICIAN. Reattempted this PM and RN Vielka reports that pt was just returned to bed after family left. She states that pt is not following directions and not safe to work with at this time. Agreed to hold and reattempt at next date when more appropriate.
--- NOTE | 2021-08-28 13:52 | PM.PN ---
Subjective Subjective: Interval history: Patient was seen this morning, he is alert to person, to place, not to time, he keeps complaining of thirst, wants to have water, his son is at bedside, he sent text to that he can take care of his father currently, he works 10 hours a day, his works, Vitals/I&O/Wt Last Vital Signs Temp 98.6 F 08/28/21 08:00 Pulse 84 08/28/21 09:31 Resp 18 08/28/21 09:31 BP 114/62 08/28/21 08:00 Pulse Ox 96 08/28/21 09:31 08/27/21 08/28/21 08/28/21 22:59 06:59 14:59 Intake Total 1550 / 2550 Output Total 1999 / 1999 400 / 2400 Balance -1999 / -1000 1150 / 150 Weight last 48 hrs Weight 59.239 kg Physical Exam Const: COMMON NORMALS: no acute distress GENERAL APPEARANCE: cooperative ORIENTATION/CONSCIOUSNESS: Yes awake, Yes oriented to person and Yes oriented to place; not oriented to time Resp: COMMON NORMALS: normal respiratory effort, No retractions, No use of accessory muscles and clear to auscultation bilaterally AUSCULTATION: clear to auscultation bilaterally Cardio: COMMON NORMALS: regular rate, regular rhythm, S1 normal heart sound present and S2 normal heart sound present RATE: regular rate RHYTHM: regular rhythm HEART SOUNDS: S1 normal heart sound present and S2 normal heart sound present GI: COMMON NORMALS: Normal to inspection, nondistended, normoactive bowel sounds present, Soft to palpation, non-tender, No hepatosplenomegaly present and no masses PALPATION: Yes Soft to palpation and Yes No hepatosplenomegaly present Extremity: COMMON NORMALS: no pedal edema Neuro: SENSORIUM/ORIENTATION: Yes oriented to person, Yes oriented to place and No oriented to time Urinary Catheter Management: Buchanan: Cath Placed During This Visit: yes Reason for Continuing Indwelling Catheter: Acute Urinary Retention or Obstruction Urinary Catheter Date of Insertion: 08/24/21 Urinary Catheter Time of Insertion: 18:55 Data : 08/27/21 05:00 08/28/21 05:10 Micro: Microbiology 08/24/21 18:56 Urine Culture - Final Urine Catheterized Klebsiella pneumoniae A&P Assessment and plan (1) Acute kidney injury superimposed on CKD: Status: Acute (2) COVID: Status: Acute (3) Intermittent self-catheterization of bladder: Status: Acute (4) Bilateral hydronephrosis: Status: Acute (5) High anion gap metabolic acidosis: Status: Acute (6) DNR (do not resuscitate): Status: Acute Plan 86-year-old man with past medical history of CKD, chronic urinary retention on intermittent self-catheterization, bilateral hydronephrosis presented to the ER with lethargy and weakness found to be in DIANE on CKD. Acute kidney injury on CKD Creatinine 5.7 CT abdomen pelvis 1. 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 2. Moderate right hip osteoarthritis. 3. Small left inguinal hernia containing omentum without bowel. 4. Right lower lobe airspace infiltrate. 5. Cholelithiasis. Buchanan catheter in place Currently on LR No overt need of dialysis currently Nephrology on consult Urinary retention, has a history of urinary retention, with post renal azotemia in the past, required Buchanan catheter placement, significant DIANE, will require Buchanan catheter placement with outpatient follow-up with urology Traumatic removal of Buchanan catheter, replaced by Dr. Gallagher, continue to monitor Continue home dose of finasteride and Flomax. Altered mental status, likely secondary to underlying dementia, prolonged hospitalization, possible COVID-19, start low-dose Zyprexa 5 mg at bedtime COVID-19: Diagnosed 6 days ago. Covid positive report from primary care physician's office Isolation precaution. Saturating well on room air. Hold off on any treatment for now. Monitor inflammatory markers with CRP every 48 hours. CODE STATUS: Discussed with son/caregiver/DPOA in detail. DNR/DNI. Renal nondialysis diet. SCDs for DVT prophylaxis, heparin 5000 every 12 for DVT prophylaxis Famotidine for PUD prophylaxis Admit to [facility] floor Attestations Medical Necessity Statement*: Patient requires hospital admission DIANE, urinary retention Coding Level of Care Code Acute Post Acute Care Nurse Practitioner for [facility] Fwd Diagnoses Acute kidney injury superimposed on CKD N17.9; N18.9 COVID U07.1 Intermittent self-catheterization of bladder Z78.9 Bilateral hydronephrosis N13.30 High anion gap metabolic acidosis E87.2 DNR (do not resuscitate) Z66
[2021-08-28] MEDS: cefTRIAXone 1,000 MG in sodium chloride 0.9% (plus) 50 ML 100 MG IV (20:53)
[2021-08-28] MEDS: OLANZapine 5 mg TABLET PO (20:54)
[2021-08-28 21:01] LABS: Glucose Point of Care 130 mg/dL (70-110)
[2021-08-29] VITALS (7 sets, daily range): BP systolic 127–158; BP diastolic 62–80; PULSE 82–98; RESP 16–20; TEMP 36.8–37.1; O2SAT 95–97
[2021-08-29 06:31] LABS: Glucose Point of Care 96 mg/dL (70-110)
[2021-08-29 06:34] LABS: Alanine Aminotransferase 8 U/L (0-41); Albumin Level 3.2 g/dL (3.5-5.2); Alkaline Phosphatase 88 IU/L (40-130); Aspartate Amino Transferase 15 U/L (0-40); Blood Urea Nitrogen 65 mg/dL (8-23); Carbon Dioxide 22 mmol/L (22-29); Chloride 103 mmol/L (98-107); Globulin 3.1 g/dL (1.3-4.6); Glucose 102 mg/dL (65-115); Magnesium 1.9 mg/dL (1.7-2.3); Osmolality Calculated 313 mOsm/kg (285-295); Phosphorus 2.9 mg/dL (2.5-4.5); Sodium 142 mmol/L (136-145); Total Bilirubin 0.4 mg/dL (0.15-1.2); Total Protein 6.3 g/dL (6.6-8.7)
--- NOTE | 2021-08-29 10:10 | P.DS_ITS ---
Discharge Providers Date of Admission: 08/25/21 06:07 Date of Discharge: August 29, 2021 Attending Provider at Admission: Biju Gonzales MD Attending Provider at Discharge: Jere Sevilla MD Primary Care Provider: Maciej Butcher DO Diagnoses at Discharge Discharge Diagnosis (1) Acute kidney injury superimposed on CKD: Status: Acute (2) COVID: Status: Acute (3) Intermittent self-catheterization of bladder: Status: Acute (4) Bilateral hydronephrosis: Status: Acute (5) High anion gap metabolic acidosis: Status: Acute (6) DNR (do not resuscitate): Status: Acute Reason for Visit Reason for Visit: NOT EATING NOT DRINKING Hospital Course Hospital Course Jose Bergman is a 86 year old male with with past medical history of BPH, bilateral hydronephrosis, CKD with baseline creatinine of 4, who self catheterizes at home who was recently tested positive for Covid on last August 18 brought into the hospital today by his son because of feeling weak and poor appetite.? Patient was admitted to [facility] for acute kidney injury on chronic kidney disease secondary to acute urinary retention, post renal azotemia, UTI, Buchanan catheter was placed, received IV fluids, clinically improved, creatinine discharge was 5.3. Advised to drink plenty of electrolyte balance fluids, last 2 L today, check creatinine 48 hours, follow-up with nephrology as outpatient. For his acute urinary retention, Buchanan catheter was placed, due to agitation, he had traumatic removal of Buchanan catheter, which was replaced by urology service, follow-up with urology in 1 week Altered mental status secondary to underlying dementia, prolonged hos pitalization, possibly COVID-19, discharged on Zyprexa 5 mg at bedtime COVID-19, asymptomatic, continue COVID-19 precautions Physical Exam Const: COMMON NORMALS: no acute distress GENERAL APPEARANCE: cooperative ORIENTATION/CONSCIOUSNESS: Yes awake, Yes oriented to person and Yes oriented to place; not oriented to time Resp: COMMON NORMALS: normal respiratory effort, No retractions, No use of accessory muscles and clear to auscultation bilaterally AUSCULTATION: clear to auscultation bilaterally Cardio: COMMON NORMALS: regular rate, regular rhythm, S1 normal heart sound present and S2 normal heart sound present RATE: regular rate RHYTHM: reg ular rhythm HEART SOUNDS: S1 normal heart sound present and S2 normal heart sound present GI: COMMON NORMALS: Normal to inspection, nondistended, normoactive bowel sounds present, Soft to palpation, non-tender and No hepatosplenomegaly present PALPATION: Yes Soft to palpation and Yes No hepatosplenomegaly present Extremity: COMMON NORMALS: no pedal edema Neuro: SENSORIUM/ORIENTATION: Yes oriented to person, Yes oriented to place and No oriented to time Urinary Catheter Management: Buchanan: Cath Placed During This Visit: yes Reason for Continuing Indwelling Catheter: Acute Urinary Retention or Obstruction Urinary Catheter Date of Insertion: 08/24/21 Urinary Catheter Time of Insertion: 18:55 Discharge Data Studies Completed and Pending Completed Studies During Hospitalization Category Date Time Status CT abdomen pelvis wo con [id number] Urgent Cat Scan 08/24/21 17:47 Completed XR chest 1V portable [id number] Stat Exams 08/24/21 12:08 Completed Pending at discharge Category Date Time Status Comprehensive Metabolic Panel AM LABS Lab 08/30/21 04:00 Ordered Magnesium AM LABS Lab 08/30/21 04:00 Ordered Phosphorus AM LABS Lab 08/30/21 04:00 Ordered Radiology Impressions Chest X-Ray 08/24/21 12:08 IMPRESSION: No acute chest abnormality. Abdomen/Pelvis CT 08/24/21 17:47 IMPRESSION: 1. 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 2. Moderate right hip osteoarthritis. 3. Small left inguinal hernia containing omentum without bowel. 4. Right lower lobe airspace infiltrate. 5. Cholelithiasis. Laboratory Results WBC 7.9 10^3/uL (4.0-10.0) 08/27/21 05:00 RBC 3.48 10^6/uL (4.1-5.3) L 08/27/21 05:00 Hgb 9.3 g/dL (11.7-16.6) L 08/27/21 05:00 Hct 29.5 % (42.0-52.0) L 08/27/21 05:00 MCV 84.8 fl (80-94) 08/27/21 05:00 MCH 26.7 pg (28.0-34.0) L 08/27/21 05:00 MCHC 31.5 g/dL (30.0-36.0) 08/27/21 05:00 RDW 14.7 % (12.1-15.1) 08/27/21 05:00 Plt Count 232 10^3/cmm (130-400) 08/27/21 05:00 MPV 10.3 fL (7.4-10.4) 08/27/21 05:00 Neut % (Auto) 81.1 % 08/27/21 05:00 Lymph % (Auto) 6.0 % 08/27/21 05:00 Graves % (Auto) 9.2 % 08/27/21 05:00 Eos % (Auto) 0.4 % 08/27/21 05:00 Baso % (Auto) 0.1 % 08/27/21 05:00 Neut # (Auto) 6.38 10^3/uL (1.8-7.7) 08/27/21 05:00 Lymph # (Auto) 0.5 10^3/uL (0.8-4.8) L 08/27/21 05:00 Graves # (Auto) 0.7 10^3/uL (0.2-0.9) 08/27/21 05:00 Eos # (Auto) 0.0 10^3/uL (0.0-0.8) 08/27/21 05:00 Baso # (Auto) 0.0 10^3/uL (0.0-0.1) 08/27/21 05:00 Nucleated RBC % (auto) 0 % 08/27/21 05:00 Nucleated RBCs # 0.0 /100WBC 08/27/21 05:00 PT 14.40 SECONDS (12.1-14.9) 08/24/21 21:29 INR 1.09 (0.8-1.2) 08/24/21 21:29 D-Dimer 1.42 ug/mIFEU (0-0.59) H 08/24/21 21:29 Sodium 142 mmol/L (136-145) 08/29/21 05:54 Potassium 4.0 mmol/L (3.5-5.1) 08/29/21 05:54 Chloride 103 mmol/L (98-107) 08/29/21 05:54 Carbon Dioxide 22 mmol/L (22-29) 08/29/21 05:54 Anion Gap 21.0 (5-19) H 08/29/21 05:54 BUN 65 mg/dL (8-23) H 08/29/21 05:54 Creatinine 5.3 mg/dL (0.7-1.2) H 08/29/21 05:54 GFR Calculation Not Reportable 08/29/21 05:54 Glucose 102 mg/dL (65-115) 08/29/21 05:54 POC Glucose 96 mg/dL (70-110) 08/29/21 06:19 Estimat Average Glucose 123 08/25/21 05:52 Hemoglobin A1c 5.9 % (4.0-6.0) 08/25/21 05:52 Calculated Osmolality 313 mOsm/kg (285-295) H 08/29/21 05:54 Uric Acid 10.7 mg/dL (3.4-7.0) H 08/28/21 05:10 Calcium 8.0 mg/dL (8.5-10.5) L 08/29/21 05:54 Phosphorus 2.9 mg/dL (2.5-4.5) 08/29/21 05:54 Magnesium 1.9 mg/dL (1.7-2.3) 08/29/21 05:54 Iron 22 ug/dL (59-158) L 08/24/21 21:29 TIBC 201 mcg/dl 08/24/21 21:29 % Saturation 10.9 % (20-50) L 08/24/21 21:29 Unsat Iron Binding 179 ug/dL (112-347) 08/24/21 21:29 Total Bilirubin 0.4 mg/dL (0.15-1.2) 08/29/21 05:54 AST 15 U/L (0-40) 08/29/21 05:54 ALT 8 U/L (0-41) 08/29/21 05:54 Alkaline Phosphatase 88 IU/L (40-130) 08/29/21 05:54 Lactate Dehydrogenase 151 U/L (135-225) 08/24/21 21:29 Creatine Kinase 66 U/L (39-308) 08/24/21 21:29 C-Reactive Protein 108.0 mg/L (0.0-4.9) H 08/27/21 05:00 Total Protein 6.3 g/dL (6.6-8.7) L 08/29/21 05:54 Albumin 3.2 g/dL (3.5-5.2) L 08/29/21 05:54 Globulin 3.1 g/dL (1.3-4.6) 08/29/21 05:54 Triglycerides 136 mg/dL (0-150) 08/25/21 05:52 Cholesterol 176 mg/dL (0-200) 08/25/21 05:52 LDL Cholesterol, Calc 114 mg/dL (50-129) 08/25/21 05:52 Total VLDL Cholesterol 27 mg/dL (0-30) 08/25/21 05:52 HDL Cholesterol 35 mg/dL (60-100) L 08/25/21 05:52 Cholesterol/HDL Ratio 5.03 mg/dL (1.0-5.00) H 08/25/21 05:52 25-OH Vitamin D Total 33 ng/mL (30-100) 08/25/21 05:52 Procalcitonin 1.04 ng/mL (0-0.5) H 08/24/21 21:29 TSH 0.12 uIU/mL (0.27-4.20) L 08/25/21 05:52 Free T4 1.19 ng/dL (0.82-1.77) 08/24/21 21:29 Free T3 1.5 PG/ML (2.0-4.4) L 08/24/21 21:29 Urine Color Cancelled 08/24/21 18:56 Urine Color Yellow (Yellow) 08/24/21 18:56 Urine Appearance Cancelled 08/24/21 18:56 Urine Appearance Hazy (CLEAR) A 08/24/21 18:56 Urine pH 6 (5-7) 08/24/21 18:56 Urine pH Cancelled 08/24/21 18:56 Ur Specific [place] 1.010 (1.005-1.030) 08/24/21 18:56 Ur Specific [place] Cancelled 08/24/21 18:56 Urine Protein 1+ (Negative) H 08/24/21 18:56 Urine Protein Cancelled 08/24/21 18:56 Urine Glucose (UA) Cancelled 08/24/21 18:56 Urine Glucose (UA) Norm (Normal) 08/24/21 18:56 Urine Ketones Cancelled 08/24/21 18:56 Urine Ketones Negative (Negative) 08/24/21 18:56 Urine Blood 3+ (Negative) H 08/24/21 18:56 Urine Blood Cancelled 08/24/21 18:56 Urine Nitrate Cancelled 08/24/21 18:56 Urine Nitrate Negative (Negative) 08/24/21 18:56 Urine Bilirubin Cancelled 08/24/21 18:56 Urine Bilirubin Neg (Negative) 08/24/21 18:56 Prot Sulfosalicylic Acd Cancelled 08/24/21 18:56 Urine Urobilinogen Cancelled 08/24/21 18:56 Urine Urobilinogen Norm mg/dL (Negative) 08/24/21 18:56 Ur Leukocyte Esterase 2+ (Negative) H 08/24/21 18:56 Ur Leukocyte Esterase Cancelled 08/24/21 18:56 Ur Microscopic Indic Cancelled 08/24/21 18:56 Urine RBC 5-10 /hpf (0-2) H 08/24/21 18:56 Urine WBC >100 /hpf (0-5) H 08/24/21 18:56 Ur Eosinophil Smear TNP 08/24/21 18:56 Ur Squamous Epith Cells 0-4 /hpf (0-5) H 08/24/21 18:56 Amorphous Sediment Not Reportable 08/24/21 18:56 Urine Bacteria 2+ /hpf (NONE) H 08/24/21 18:56 Urine Eosinophils No eosinophils seen 08/24/21 18:56 Ur Random Microalbumin 41 ug/dL (0-20) H 08/24/21 18:56 Ur Random Sodium 71 mmol/L 08/24/21 18:56 Ur Random Potassium 21 mmol/L 08/24/21 18:56 Ur Random Chloride 51 mmol/L 08/24/21 18:56 Urine Creatinine 83 mg/dL (39-259) 08/24/21 18:56 Urine Creatinine 89 mg/dL (39-259) 08/24/21 18:56 Microalb/Creat Ratio 461 mg/dL (0-20) H 08/24/21 18:56 Hepatitis A IgM Ab Non-reactive (Nonreactive) 08/24/21 21: Hep Bs Antigen Non-reactive (Nonreactive) 08/24/21 21: Hep Bs Antibody 3.5 (11.5-1000) L 08/24/21 21:29 Hep B Core Total Ab Non-reactive (Nonreactive) 08/24/21 21:29 Hepatitis C Antibody Non-reactive (Nonreactive) 08/25/21 05:52 HIV 1&2 Ab & HIV 1 Ag Non-reactive (Non-Reactiv) 08/24/21 21:29 HIV 1&2 Antibody Non-reactive (Non-Reactiv) 08/24/21 21:29 Vitals Last Vital Signs Temp 98.5 F 08/29/21 07:37 Pulse 98 08/29/21 07:37 Resp 16 08/29/21 07:37 BP 132/75 08/29/21 07:37 Pulse Ox 95 08/29/21 07:37 Discharge Plan Discharge Patient Disposition: Xfer SNF Condition: Stable Prescriptions: New finasteride 5 mg Tablet 5 mg PO DAILY 30 Days Qty: 30 0RF tamsulosin 0.4 mg Capsule 0.4 mg PO DAILY 30 Days Qty: 30 0RF allopurinol 100 mg Tablet 100 mg PO DAILY 30 Days Qty: 30 0RF olanzapine 5 mg Tablet 5 mg PO BEDTIME 30 Days Qty: 30 0RF Discontinued finasteride 5 mg tablet 5 mg PO QDAY Qty: 90 3RF tamsulosin 0.4 mg capsule See Rx Instructions .ROUTE .COMPLEX Qty: 180 3RF Dose Instruction: TAKE 1 CAPSULE BY MOUTH TWICE DAILY Rx Instructions: TAKE 1 CAPSULE BY MOUTH TWICE DAILY Discharge Orders: Discharge Order (Routine); Ordered 08/29/21 Ordered By: Jere Sevilla Referrals: Reed Gallagher MD [Physician] - 1 week Maciej Butcher DO [Primary Care Provider] - Discharge Diet: Cardiac Discharge Activity: Resume usual activity Activity Restrictions/Additional Instructions: -Please hydrate well, take at least 2 L of fluid a day, creatinine on discharge was 5.3 -Monitor kidney function as outpatient every 48 hours, check creatinine -Follow with Dr. Gallagher in 1 to 2 weeks Discharge Attestations Time Spent in Discharge Care*: less than 30 min Quality Metrics Clinical Quality Measures [ No reported AMI, CVA or VTE this stay] Coding Level of Care Code Acute Chg FW DC note Diagnoses Acute kidney injury superimposed on CKD N17.9; N18.9 COVID U07.1 Intermittent self-catheterization of bladder Z78.9 Bilateral hydronephrosis N13.30 High anion gap metabolic acidosis E87.2 DNR (do not resuscitate) Z66
--- NOTE | 2021-08-29 10:53 | P.PN_ITS ---
Subjective Subjective: Interval history: No acute issues with Mr. Bergman today. He remains comfortable in his bed. Minimally interactive. Buchanan catheter in, draining nicely. Decent oral intake. IV fluids now held. Medications: Reviewed: Yes Medication Review Details: Current Medications Acetaminophen (Acetaminophen 325 Mg Tablet) 650 mg PO Q6H PRN PRN Reason: Mild/Mod Pain Or Temp >/= 101 Albuterol/Ipratropium (Ipratropium-Albuterol 3 Ml Neb) 3 ml INHALATION Q6H.RESPIRATORY MAGGIE Last Admin: 08/27/21 03:20 Dose: Not Given Documented by: Allopurinol (Allopurinol 100 Mg Tablet) 100 mg PO DAILY MAGGIE Last Admin: 08/27/21 08:04 Dose: 100 mg Documented by: Bisacodyl (Bisacodyl 5 Mg Tablet) 10 mg PO DAILY PRN; Protocol PRN Reason: Constipation (see protocol) Famotidine (Famotidine 20 Mg/2 Ml Inj) 20 mg IVP Q12H MAGGIE Last Admin: 08/27/21 08:04 Dose: 20 mg Documented by: Finasteride (Finasteride 5 Mg Tablet) 5 mg PO DAILY MAGGIE Last Admin: 08/27/21 08:03 Dose: 5 mg Documented by: Heparin Sodium (Porcine) (Heparin 5,000 Unit/Ml Inj 1 Ml) 5,000 unit SUBCUT Q12H MAGGIE Last Admin: 08/27/21 08:04 Dose: 5,000 unit Documented by: Ceftriaxone Sodium 1,000 mg/ (Sodium Chloride) 50 mls @ 100 mls/hr IV Q24H MAGGIE; Protocol Last Infusion: 08/26/21 22:47 Dose: Infused Documented by: Lactated Ringer's (Lactated Ringers) 1,000 mls @ 100 mls/hr IV .Q10H [facility] Last Admin: 08/27/21 01:26 Dose: 125 mls/hr Documented by: Lactulose (Lactulose Oral Liq 20 Gm/30 Ml Udc) 10 gm PO DAILY PRN; Protocol PRN Reason: Constipation (see protocol) Morphine Sulfate (Morphine 4 Mg/Ml Sdv 1 Ml) 2 mg IVP Q4H PRN PRN Reason: SEVERE PAIN Ondansetron HCl (Ondansetron 2 Mg/Ml Sdv 2 Ml) 4 mg IVP Q8H PRN PRN Reason: vomiting, or N/V if npo Tamsulosin HCl (Tamsulosin 0.4 Mg Capsule) 0.4 mg PO DAILY MAGGIE Last Admin: 08/27/21 08:04 Dose: 0.4 mg Documented by: Vitals/I&O/Wt Last Vital Signs Temp 98.5 F 08/29/21 07:37 Pulse 98 08/29/21 07:37 Resp 16 08/29/21 07:37 BP 132/75 08/29/21 07:37 Pulse Ox 95 08/29/21 07:37 08/28/21 08/29/21 08/29/21 22:59 06:59 14:59 Intake Total 1150 / 2150 680 / 2830 120 / 120 Output Total 0 / 0 1800 / 1800 Balance 1150 / 2150 -1120 / 1030 120 / 120 Weight last 48 hrs Weight 58.151 kg Weight 58.377 kg Physical Exam Narrative: EXAM NARRATIVE: Constitutional: Awake, comfortable HEENT: Wet mucosa, no jvp, non icteric Lungs: Bilaterally clear without discernible wheeze or rales in all lung zones CVS: S1 S2, no murmurs Abdo: Soft, BS ok Ext 4: Minimal edema, peripheral perfusion with no cyanosis Neurological: Grossly non-focal Urinary Catheter Management: Buchanan: Cath Placed During This Visit: yes Reason for Continuing Indwelling Catheter: Acute Urinary Retention or Obstruction Urinary Catheter Date of Insertion: 08/24/21 Urinary Catheter Time of Insertion: 18:55 Data : 08/27/21 05:00 08/29/21 05:54 A&P Assessment and plan (1) Acute kidney injury superimposed on CKD: Status: Acute Plan 1. Acute kidney injury Consistent with obstructive uropathy and is now making an improvement. Creatinine 4.1 back in January of last year, I wonder if this is his baseline. This is only a GFR of 14 mL/min Off ivf, oral intake is encouraged Dose medications for GFR less than 15 Avoid usual nephrotoxic agents 2. Obstructive uropathy Follow-up with Dr. Gallagher following discharge Currently on finasteride and Flomax We will leave Buchanan catheter in following discharge. Acute renal issues have now resolved. I will sign off his care at this time, recommend outpatient follow-up with nephrology. Thank you for consultation, it is a pleasure to follow these cases with you Exam and interview performed with aid of bedside RN using telemedicine Time spent 20 min inc > 50% of time in face to face counseling Colten Thompson MD [facility] [phone] Attestations Medical Necessity Statement*: Eval for Acute Renal Failure Coding Level of Care Code Acute District Associate Judge for Chg Fwd Diagnoses Acute kidney injury superimposed on CKD N17.9; N18.9
[2021-08-29] MEDS: heparin 5,000 unit/mL INJ 1 mL 5000 UNIT SUBCUT (10:58)
[2021-08-29] MEDS: tamsulosin 0.4 mg Capsule PO (10:58)
[2021-08-29] MEDS: finasteride 5 mg Tablet PO (10:58)
[2021-08-29] MEDS: famotidine 20 mg/2 mL INJ IVP (10:58)
[2021-08-29] MEDS: allopurinol 100 mg Tablet PO (10:58)
== END 2021-08-29 18:40 | disposition skilled nursing facility (03) | DRG 682 ==
LOC: ER 08-25 02:12 → ER IP 08-25 06:08 → MEDSURG 08-25 06:52
PROVIDERS: Internal Medicine Nephrology; Admitting Provider Student in an Organized Health Care Education/Training Program; Emergency Provider Family Medicine; PCP Family Medicine; Visit Provider Family Medicine
DX: N17.9 Acute kidney failure, unspecified (principal); U07.1 COVID-19; N30.00 Acute cystitis without hematuria; E87.2 Acidosis; E87.1 Hypo-osmolality and hyponatremia; S37.30XA Unspecified injury of urethra, initial encounter; T83.098A Other mechanical complication of other urinary catheter, initial encounter; N18.4 Chronic kidney disease, stage 4 (severe); Z66 Do not resuscitate; N40.1 Benign prostatic hyperplasia with lower urinary tract symptoms; R33.8 Other retention of urine; N13.30 Unspecified hydronephrosis; F03.90 Unspecified dementia, unspecified severity, without behavioral disturbance, psychotic disturbance, mood disturbance, and anxiety; D63.1 Anemia in chronic kidney disease; R97.20 Elevated prostate specific antigen [PSA]; X58.XXXA Exposure to other specified factors, initial encounter; Y92.231 Patient bathroom in hospital as the place of occurrence of the external cause; E79.0 Hyperuricemia without signs of inflammatory arthritis and tophaceous disease; N31.8 Other neuromuscular dysfunction of bladder
CPT/HCPCS: 36415; 36416; 51702; 71045; 74176; 80053; 80061; 81001; 81003; 82044; 82306; 82436; 82550; 82570; 82962; 83036; 83540; 83550; 83615; 83735; 84100; 84133; 84145; 84300; 84439; 84443; 84481; 84550; 85025; 85378; 85610; 85999; 86140; 86705; 86706; 86709; 86803; 87077; 87086; 87186; 87340; 87641; 87806; 92526; 92610; 94640; 94664; 96372; 97161; 97165; 97530; 97535; J0696; J1170; J1644; J2060; J3490; Q3014

== ENCOUNTER 2021-09-03 13:42 | Observation (INO) | payer MEDICARE, SELFPAY ==
[2021-09-03] VITALS (7 sets, daily range): BP systolic 107–129; BP diastolic 67–74; PULSE 92–110; RESP 18–25; TEMP 36.7; O2SAT 97–100; BMI 20.3
--- NOTE | 2021-09-03 13:49 | ED_ITS ---
HPI - Male Genitourinary General: Chief complaint: Urogenital-Male Stated complaint: KIDNEY ISSUES Time Seen by Provider: 09/03/21 13:48 History of Present Illness: Mr. Bergman is an 86-year-old gentleman with significant past medical history of DIANE superimposed on CKD presenting to the emergency department due to abnormal labs. He was previously hospitalized and had renal failure at that time. He was managed medically and discharged to [facility] where is been. Apparently had routine labs drawn which showed once again worsening of his creatinine. Family has noticed a little bit of confusion. Patient denies complaints himself. He is still having urine output. No other specific changes in health, exacerbating, relieving factors identified. Onset (ago): day(s) Duration: progressively worsening Severity: moderate Context: other Review of Systems General: Reports: 10 or more systems reviewed and unremarkable except in HPI and below PFSH ED PFSH: Medical History (Updated 09/06/21 @ 22:20 by Gino Esquivel MD) Acute kidney injury superimposed on CKD Bilateral hydronephrosis CKD (chronic kidney disease) COVID Detrusor dysfunction DNR (do not resuscitate) Epididymitis, right History of right inguinal hernia Intermittent self-catheterization of bladder Urinary retention Surgical History History of cataract surgery BILATERAL Family History Mother , AT AGE 76 Diabetes Father , AT AGE 67 CVA Stroke Social History Smoking and tobacco status: never smoked Alcohol intake: never Adopted: No Caregiver/support person: No Marital status: Current occupational status: retired History of recent travel: No Physical Exam Const: COMMON NORMALS: alert GENERAL APPEARANCE: cooperative and well developed HENMT: COMMON NORMALS: normocephalic and atraumatic HEAD & SCALP: normocephalic and atraumatic Eye: COMMON NORMALS: conjunctivae normal CONJUNCTIVA: Yes conjunctivae normal SCLERA: sclerae normal Neck/C-Spine: COMMON NORMALS: supple GENERAL: Yes trachea midline Resp: COMMON NORMALS: normal respiratory effort and clear to auscultation bilaterally EFFORT & INSPECTION: Yes able to speak in complete sentences AUSCULTATION: clear to auscultation bilaterally Cardio: COMMON NORMALS: regular rate and regular rhythm RATE: regular rate RHYTHM: regular rhythm GI: COMMON NORMALS: Soft to palpation PALPATION: Yes Soft to palpation and No Tenderness to palpation present (GI) PERCUSSION: normal to percussion Extremity: GENERAL: Yes normal exam except as noted and No edema Neuro: COMMON NORMALS: moves all extremities SENSORIUM/ORIENTATION: Yes alert and No Orientation impaired Psych: COMMON NORMALS: mental status grossly normal and Normal thought process present THOUGHT PROCESS: Normal thought process present Course ED course: - Patient was seen and evaluated by me at bedside - Patient placed on cardiac monitors, IV access obtained - Initial evaluation notable for exam as above, patient hard of hearing - Labs notable for no leukocytosis, normocytic anemia. Metabolic panel with elevated creatinine compared to prior. Electrolytes satisfactory without requiring emergent intervention. - Imaging notable for no residual hydronephrosis on ultrasound - Discussed with nephrology it infrastructure consultant who recommends admission - Upon serial reexamination after treatment the patient was similar - Based on patient history, evaluation, labs, and imaging as interpreted the most likely cause of the patient's condition is acute kidney injury superimposed on chronic kidney disease - The results of ED evaluation were discussed with the patient including plan for admission due to requirement for level of care not available if discharged to prevent significant worsening/deterioration. -Hospitalist service contacted and agreed admit the patient - Patient was admitted without further deterioration or significant events. Note: Click bubbles or prepopulated salinas in note writing are used for assistance with data collection and billing and are inherently more limited than narrative and other text portions of this note. Please use narrative for additional clinical history and defer to narrative/free test for any case of contradictory information. If information appears in only free text or click bubble it should be considered present or absent as reported. Please contact note engineering writer for clarifications of clinical information or contradictory information. MDM is a brief summary, contradictory or erroneous seeming information should be clarified and full note should be reviewed. Vital Signs: Vital signs: Vital Signs Temperature 97.9 F 09/05/21 11:15 Pulse Rate 90 09/05/21 11:15 Respiratory Rate 18 09/05/21 11:15 Blood Pressure 111/68 09/05/21 11:15 Pulse Oximetry 98 09/05/21 11:15 MDM - Male Medical Decision Making 86-year-old gentleman with history of COVID admission and subsequent renal failure presenting due to abnormal labs. Creatinine is elevated compared to discharge without emergent need for dialysis. Discussed with nephrology who recommends admission for further inpatient management, patient will be admitted. Medical Records I reviewed the patient's medical records. Lab Data I reviewed the patient's lab results. : 09/05/21 06:56 09/05/21 06:56 Radiology Impressions Renal Ultrasound 09/03/21 16:37 IMPRESSION: 1. No residual hydronephrosis. 2. Mild bilateral renal atrophy with more for diffuse thinning of the cortex involving the LEFT kidney. 3. 2 cm nodule extending from the mid RIGHT kidney. Echogenicity is similar to the adjacent cortex. 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 This finding was not present in 2017. If CT with contrast cannot be performed to evaluate for renal mass recommend follow-up ultrasound in 3 months to evaluate for any interval change in this RIGHT renal lobulated cortex. Laboratory Results WBC 6.6 10^3/uL (4.0-10.0) 09/03/21 15:05 RBC 3.44 10^6/uL (4.1-5.3) L 09/03/21 15:05 Hgb 9.2 g/dL (11.7-16.6) L 09/03/21 15:05 Hct 30.6 % (42.0-52.0) L 09/03/21 15:05 MCV 89.0 fl (80-94) 09/03/21 15:05 MCH 26.7 pg (28.0-34.0) L 09/03/21 15:05 MCHC 30.1 g/dL (30.0-36.0) 09/03/21 15:05 RDW 15.1 % (12.1-15.1) 09/03/21 15:05 Plt Count 177 10^3/cmm (130-400) 09/03/21 15:05 MPV 9.3 fL (7.4-10.4) 09/03/21 15:05 Neut % (Auto) 80.6 % 09/03/21 15:05 Lymph % (Auto) 8.1 % 09/03/21 15:05 Bond % (Auto) 9.0 % 09/03/21 15:05 Eos % (Auto) 0.5 % 09/03/21 15:05 Baso % (Auto) 0.3 % 09/03/21 15:05 Neut # (Auto) 5.34 10^3/uL (1.8-7.7) 09/03/21 15:05 Lymph # (Auto) 0.5 10^3/uL (0.8-4.8) L 09/03/21 15:05 Bond # (Auto) 0.6 10^3/uL (0.2-0.9) 09/03/21 15:05 Eos # (Auto) 0.0 10^3/uL (0.0-0.8) 09/03/21 15:05 Baso # (Auto) 0.0 10^3/uL (0.0-0.1) 09/03/21 15:05 Nucleated RBC % (auto) 0 % 09/03/21 15:05 Nucleated RBCs # 0.0 /100WBC 09/03/21 15:05 Sodium 136 mmol/L (136-145) 09/03/21 15:05 Potassium 4.3 mmol/L (3.5-5.1) 09/03/21 15:05 Chloride 99 mmol/L (98-107) 09/03/21 15:05 Carbon Dioxide 25 mmol/L (22-29) 09/03/21 15:05 Anion Gap 16.3 (5-19) 09/03/21 15:05 BUN 65 mg/dL (8-23) H 09/03/21 15:05 Creatinine 6.2 mg/dL (0.7-1.2) H* 09/03/21 15:05 GFR Calculation Not Reportable 09/03/21 15:05 Glucose 107 mg/dL (65-115) 09/03/21 15:05 Calculated Osmolality 301 mOsm/kg (285-295) H 09/03/21 15:05 Calcium 8.3 mg/dL (8.5-10.5) L 09/03/21 15:05 Phosphorus 3.6 mg/dL (2.5-4.5) 09/03/21 15:05 Magnesium 2.2 mg/dL (1.7-2.3) 09/03/21 15:05 Total Bilirubin 0.2 mg/dL (0.15-1.2) 09/03/21 15:05 AST 13 U/L (0-40) 09/03/21 15:05 ALT 9 U/L (0-41) 09/03/21 15:05 Alkaline Phosphatase 90 IU/L (40-130) 09/03/21 15:05 Troponin T Baseline 80 ng/L (0-15) H 09/03/21 15:05 Troponin T 120 Minute 73.03 ng/L (0-15) H 09/03/21 17:17 Delta Troponin T -6.97 ABS# (0-10) L 09/03/21 17:17 NT-Pro-B Natriuret Pep 1495 pg/mL (0-450) H 09/03/21 15:05 Total Protein 6.7 g/dL (6.6-8.7) 09/03/21 15:05 Albumin 3.4 g/dL (3.5-5.2) L 09/03/21 15:05 Globulin 3.3 g/dL (1.3-4.6) 09/03/21 15:05 TSH 0.50 uIU/mL (0.27-4.20) 09/03/21 15:05 EKG Data EKG 1: I personally reviewed and interpreted this EKG as follows: EKG Data: 09/03/21 EKG interpretation time: 14:23 Interpretation: Twelve-lead EKG shows a regular rhythm at a rate of 99. IN interval 148, QRS duration 84, QTc 393. Normal axis. Interpretation: Sinus rhythm. Discharge Plan Discharge Patient Disposition: Placed in Observation Admit Provider: Velma Ashby Clinical Impression: Acute kidney injury superimposed on CKD Coding Level of Care Code ED Composing Machine Operator for Luci[employer] Enrico
--- NOTE | 2021-09-03 14:03 | ECG_ITS ---
[facility] Test Date: 2021-09-03 Pat Name: Jose Bergman Department: Room: Gender: Male Sand Mixer Machine: : 1935 Requested By: Gino Esquivel Order Number: [id number] Reading MD: ANI VALDEZ Measurements Intervals Ulysses Rate: 99 P: 6 NH: 148 QRS: 61 QRSD: 84 T: 81 QT: 336 QTc: 433 Interpretive Statements SINUS RHYTHM NONSPECIFIC ST & T-WAVE ABNORMALITY Compared to ECG 03/07/2017 22:55:56 T-wave abnormality now present Sinus arrhythmia no longer present ST (T wave) deviation no longer present Electronically Signed On 09-03-2021 21:47:44 NUCLEAR OPERATOR by ANI VALDEZ [id number]
[2021-09-03 15:15] LABS: Basophils % 0.3 %; Eosinophils % 0.5 %; Hematocrit 30.6 % (42.0-52.0); Hemoglobin 9.2 g/dL (11.7-16.6); Lymphocytes # 0.5 10^3/uL (0.8-4.8); Lymphocytes % 8.1 %; Mean Corpuscular HGB Conc 30.1 g/dL (30.0-36.0); Mean Corpuscular Hemoglobin 26.7 pg (28.0-34.0); Mean Platelet Volume 9.3 fL (7.4-10.4); Monocytes # 0.6 10^3/uL (0.2-0.9); Neutrophils # 5.34 10^3/uL (1.8-7.7); Neutrophils % 80.6 %; Nucleated Red Blood Cells % 0 %; Platelet Count 177 10^3/cmm (130-400); Red Blood Count 3.44 10^6/uL (4.1-5.3); Red Cell Distribution Width 15.1 % (12.1-15.1); White Blood Count 6.6 10^3/uL (4.0-10.0)
[2021-09-03 15:43] LABS: Troponin(5th) Baseline 80 ng/L (0-15)
[2021-09-03 15:51] LABS: Alanine Aminotransferase 9 U/L (0-41); Albumin Level 3.4 g/dL (3.5-5.2); Alkaline Phosphatase 90 IU/L (40-130); Anion Gap 16.3 (5-19); Aspartate Amino Transferase 13 U/L (0-40); Blood Urea Nitrogen 65 mg/dL (8-23); Calcium 8.3 mg/dL (8.5-10.5); Carbon Dioxide 25 mmol/L (22-29); Chloride 99 mmol/L (98-107); Globulin 3.3 g/dL (1.3-4.6); Glucose 107 mg/dL (65-115); Magnesium 2.2 mg/dL (1.7-2.3); NT Pro B Type Natriuretic Pept 1495 pg/mL (0-450); Osmolality Calculated 301 mOsm/kg (285-295); Phosphorus 3.6 mg/dL (2.5-4.5); Potassium 4.3 mmol/L (3.5-5.1); Sodium 136 mmol/L (136-145); Total Bilirubin 0.2 mg/dL (0.15-1.2); Total Protein 6.7 g/dL (6.6-8.7)
--- NOTE | 2021-09-03 15:52 | PC.PHAR ---
PT MEDS VERIFIED BY NURSE BASS FROM [facility].
--- NOTE | 2021-09-03 16:37 | US_ITS ---
WS: [id number] RENAL ULTRASOUND HISTORY: DIANE COMPARISON: 02/19/[address] 08/24/2021 and 03/07/2017 TECHNIQUE: 2-D and color Doppler imaging of the kidney submitted. Right kidney: 8.6 cm x 6.1 cm x 6.4 cm. Atrophy of the RIGHT kidney. There is a cortical prominence in the mid kidney of decreased echogenici ty. Maximum diameter of this cortical thickening is 2.0 cm. This is new since 2017. On the CT this pr ominence was similar to the remaining cortex. No significant residual hydronephrosis. Left kidney: 8.6 cm x 5.7 cm x 5.0 cm. Mild atrophy of the kidney. Cortical cyst in the mid kidney measures 2.1 x 1.7 x 1.3 cm. No hydroneph rosis. Cortical thinning throughout. Aorta: Normal. Urinary Bladder: Nondistended urinary bladder. Buchanan catheter is present. There is a low-attenuation enlarged nodular prostate gland. Prostate measures at least 6.7 x 5.3 cm extends over a length of 7.0 cm. US/US renal BI* [id number] IMPRESSION: 1. No residual hydronephrosis. 2. Mild bilateral renal atrophy with more for diffuse thinning of the cortex i nvolving the LEFT kidney. 3. 2 cm nodule extending from the mid RIGHT kidney. Echogenicity is similar to the adjacent cortex. 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 This finding w as not present in 2017. If CT with contrast cannot be performed to evaluate for renal mass recommend follow-up ultrasound in 3 months to evaluate for any inte rval change in this RIGHT renal lobulated cortex.
[2021-09-03] MEDS: morphine 4 mg/mL SDV 1 mL IVP (17:00)
--- NOTE | 2021-09-03 17:32 | PM.HP ---
Providers/Chief Complaint Primary Care Provider: Maciej Butcher DO Chief Complaint: KIDNEY ISSUES History of Present Illness Jose Bergman is a 86 year old male Medications/Allergies Home Medications Medication Instructions Recorded Confirmed Last Taken Type allopurinol 100 mg tablet 100 mg PO DAILY 30 Days #30 tab 08/29/21 09/03/21 09/03/21 08:00 Rx finasteride 5 mg tablet 5 mg PO DAILY 30 Days #30 tab 08/29/21 09/03/21 09/03/21 08:00 Rx olanzapine 5 mg tablet 5 mg PO BEDTIME 30 Days #30 tab 08/29/21 09/03/21 09/02/21 20:00 Rx tamsulosin 0.4 mg capsule 0.4 mg PO DAILY 30 Days #30 cap 08/29/21 09/03/21 09/03/21 08:00 Rx alprazolam 0.25 mg tablet (Xanax) 0.25 mg PO DAILY PRN 09/03/21 09/03/21 Unknown History bisacodyl 5 mg tablet,delayed 5 mg PO DAILY PRN 09/03/21 09/03/21 09/03/21 09:32 History release (Dulcolax (bisacodyl)) Allergies Allergy/AdvReac Type Severity Reaction Status Date / Time No Known Allergies Allergy Verified 09/03/21 15:53 PFSH Acute PFSH: Medical History Bilateral hydronephrosis CKD (chronic kidney disease) COVID Detrusor dysfunction DNR (do not resuscitate) Epididymitis, right History of right inguinal hernia Intermittent self-catheterization of bladder Urinary retention Surgical History History of cataract surgery BILATERAL Family History Mother , AT AGE 76 Diabetes Father , AT AGE 67 CVA Stroke Social History Smoking and tobacco status: never smoked Alcohol intake: never Adopted: No Caregiver/support person: No Marital status: Current occupational status: retired History of recent travel: No Vitals/I&O/Wt Last Vital Signs Pulse 104 H 09/03/21 16:26 Resp 19 H 09/03/21 17:00 BP 129/74 09/03/21 16:26 Pulse Ox 98 09/03/21 17:00 Weight last 48 hrs Weight 57.153 kg Data : 09/03/21 15:05 09/03/21 15:05 Coding Level of Care Code Acute Music Video Director for Bindu Weston
[2021-09-03 18:19] LABS: Troponin 5 2HR 73.03 ng/L (0-15)
[2021-09-03 18:27] LABS: Troponin 5 2HR Delta -6.97 ABS# (0-10)
--- NOTE | 2021-09-03 20:03 | ECG_ITS ---
[facility] Test Date: 2021-09-03 Pat Name: Jose Bergman Department: Room: 270 Gender: Male Digital Media Designer: : 1935 Requested By: Gino Esquivel Order Number: [id number] Reading MD: ANI VALDEZ Measurements Intervals [place] Rate: 101 P: 65 MT: 189 QRS: 45 QRSD: 90 T: 72 QT: 350 QTc: 454 Interpretive Statements SINUS TACHYCARDIA NONSPECIFIC T-WAVE ABNORMALITY ABNORMAL RHYTHM ECG Compared to ECG 09/03/2021 14:19:23 Sinus rhythm no longer present T-wave abnormality still present Electronically Signed On 09-03-2021 21:48:46 ENDOSCOPY TECHNICIAN by ANI VALDEZ [id number]
--- NOTE | 2021-09-03 20:28 | PM.HP ---
Providers/Chief Complaint Admitting Physician: Velma Ashby MD Primary Care Provider: Maciej Butcher DO Chief Complaint: KIDNEY ISSUES History of Present Illness Jose Bergman is a 86 year old male with past medical history of BPH, bilateral hydronephrosis, CKD with baseline creatinine of 4, recent hospitalization for acute on chronic urinary retention secondary to BPH developing post renal azotemia and a UTI, for which Buchanan catheter was placed, creatinine on discharge was 5.3, recent history of COVID-19 infection, asymptomatic, who presents to [facility] due to abnormal labs drawn at [facility]. Patient was sent over to [facility] as his creatinine went up to 6.2. Currently patient is alert to person, to place, to time, he is quite alert and awake from the previous times I have seen him, his family surrounding him, he tells me that he is here at [facility] because they were worried about his kidney function, he tells me that he is feeling okay, for 86 years old, he does not want to have dialysis, he does not want to have aggressive interventions, family tells me that he does have episodes of confusion at [facility], he has been pulling at his Buchanan catheter, with slight bleeding around the Buchanan catheter, but continues to have good urine output from his Buchanan. In the emergency room he is found to have a creatinine of 6.2, was complaining of flank pain so renal ultrasound was ordered, hospitalist team was called for admission. Review of Systems Const: Denies: fever(s), chills, fatigue or malaise Eyes: Reports: change in vision ENMT: Denies: throat pain or nasal congestion Card: Denies: chest pain, palpitations, irregular heart rhythm, edema, lightheadedness, syncope or dyspnea on exertion Resp: Denies: dyspnea, productive cough, non-productive cough or wheezing GI: Denies: abdominal pain, nausea, vomiting, hematemesis, diarrhea, constipation, hematochezia or melena : Denies: flank pain, difficulty urinating, dysuria or urinary frequency Musc: Denies: neck pain or back pain Skin/Breast: Denies: rash Neuro: Denies: headache(s), dizziness or vertigo Medications/Allergies Home Medications Medication Instructions Recorded Confirmed Last Taken Type allopurinol 100 mg tablet 100 mg PO DAILY 30 Days #30 tab 08/29/21 09/03/21 09/03/21 08:00 Rx finasteride 5 mg tablet 5 mg PO DAILY 30 Days #30 tab 08/29/21 09/03/21 09/03/21 08:00 Rx olanzapine 5 mg tablet 5 mg PO BEDTIME 30 Days #30 tab 08/29/21 09/03/21 09/02/21 20:00 Rx tamsulosin 0.4 mg capsule 0.4 mg PO DAILY 30 Days #30 cap 08/29/21 09/03/21 09/03/21 08:00 Rx alprazolam 0.25 mg tablet (Xanax) 0.25 mg PO DAILY PRN 09/03/21 09/03/21 Unknown History bisacodyl 5 mg tablet,delayed 5 mg PO DAILY PRN 09/03/21 09/03/21 09/03/21 09:32 History release (Dulcolax (bisacodyl)) Allergies Allergy/AdvReac Type Severity Reaction Status Date / Time No Known Allergies Allergy Verified 09/03/21 15:53 PFSH Acute PFSH: Medical History (Updated 09/03/21 @ 20:38 by Jere Sevilla MD) Bilateral hydronephrosis CKD (chronic kidney disease) COVID Detrusor dysfunction DNR (do not resuscitate) Epididymitis, right History of right inguinal hernia Intermittent self-catheterization of bladder Urinary retention Surgical History History of cataract surgery BILATERAL Family History Mother , AT AGE 76 Diabetes Father , AT AGE 67 CVA Stroke Social History Smoking and tobacco status: never smoked Alcohol intake: never Adopted: No Caregiver/support person: No Marital status: Current occupational status: retired History of recent travel: No Vitals/I&O/Wt Last Vital Signs Pulse 109 H 09/03/21 18:03 Resp 22 H 09/03/21 18:03 BP 107/72 09/03/21 18:03 Pulse Ox 97 09/03/21 18:03 Weight last 48 hrs Weight 57.153 kg Physical Exam Const: COMMON NORMALS: no acute distress and patient oriented x3 HENMT: COMMON NORMALS: normocephalic HEAD & SCALP: normocephalic Eye: COMMON NORMALS: Equal, round and reactive pupils present and EOMs intact bilaterally Neck/C-Spine: COMMON NORMALS: no JVD Lymph: LYMPHATIC: no lymphadenopathy noted Chest: COMMONS NORMALS: normal inspection of the chest Resp: COMMON NORMALS: normal respiratory effort, No retractions, No use of accessory muscles and clear to auscultation bilaterally AUSCULTATION: clear to auscultation bilaterally Cardio: COMMON NORMALS: no JVD, regular rate, regular rhythm, S1 normal heart sound present and S2 normal heart sound present RATE: regular rate RHYTHM: regular rhythm HEART SOUNDS: S1 normal heart sound present and S2 normal heart sound present GI: COMMON NORMALS: Normal to inspection, nondistended, normoactive bowel sounds present, Soft to palpation, non-tender, No hepatosplenomegaly present, no masses and no bruits PALPATION: Yes Soft to palpation and Yes No hepatosplenomegaly present : COMMON NORMALS: Yes no CVA tenderness Extremity: COMMON NORMALS: capillary refill normal, no clubbing, cyanosis or edema, no calf tenderness and no pedal edema Neuro: COMMON NORMALS: patient oriented x3 Psych: COMMON NORMALS: mental status grossly normal Data : 09/03/21 15:05 09/03/21 15:05 A&P Assessment and plan (1) Bilateral hydronephrosis: Status: Acute (2) Acute kidney injury superimposed on CKD: Status: Acute (3) Urinary retention: Status: Acute (4) Detrusor dysfunction: Status: Acute (5) COVID: Status: Acute Plan Acute kidney injury on chronic kidney disease -Secondary to post renal azotemia, urinary retention secondary BPH, -Creatinine up to 6.2, Buchanan catheter in place -Gentle IV fluids, monitor urine output, monitor creatinine -Patient declines dialysis -Nephrology consulted by the emergency room -UA and renal ultrasound pending -DNR/DNI -Heparin for DVT prophylaxis Traumatic Buchanan removal, on his last hospitalization he removed his Buchanan catheter traumatically, resulting significant bleeding, family says during his episodes of confusion he does tend to pull on his Buchanan catheter, currently having slight bleeding around urethral meatus,, continue to monitor Episodes of altered mental status underlying dementia, history of prolonged hospitalization, continue Zyprexa 5 mg at bedtime History of COVID-19 infection, asymptomatic, off precautions Acute on chronic anemia, secondary to acute renal failure, continue to monitor Elevated troponins, no complaints of chest pain, no acute ST-T wave changes, continue to monitor telemetry monitoring Attestations Medical Necessity Statement*: Patient requires hospitalization, outpatient with observation, for acute kidney injury Coding Level of Care Code Acute Ict Quality Assurance Engineer for [facility] Fwd Diagnoses Bilateral hydronephrosis N13.30 Acute kidney injury superimposed on CKD N17.9; N18.9 Urinary retention R33.9 Detrusor dysfunction N31.8 COVID U07.1
[2021-09-03] MEDS: OLANZapine 5 mg TABLET PO (21:48)
[2021-09-03] MEDS: sodium chloride 0.9% 1,000 ML 100 ML IV (21:48)
[2021-09-03] MEDS: heparin 5,000 unit/mL INJ 1 mL 5000 UNIT SUBCUT (21:49)
[2021-09-03 21:54] LABS: Troponin 5 6HR 76.39 ng/L (0-15)
[2021-09-03 22:00] LABS: Troponin 5 6HR Delta -3.61 ng/L (0-12)
[2021-09-04] VITALS (10 sets, daily range): BP systolic 103–129; BP diastolic 57–74; PULSE 80–102; RESP 16–18; TEMP 36.3–36.9; O2SAT 96–99
[2021-09-04 02:12] LABS: Add Urine Culture? Yes; Add Urine Microscopic? YES; Bacteria Urine TRACE /hpf; Bilirubin Urine Neg (Negative); Blood Urine 3+ (Negative); Glucose Urine UA Norm (Normal); Ketones Urine Negative (Negative); Leukocyte Esterase Urine 2+ (Negative); Nitrate Urine Negative (Negative); Protein Urine Trace (Negative); RBC Urine 25-40 /hpf (0-2); Renal Epithelial Cells Urine 5 /hpf; Specific Gravity, Urine 1.005 (1.005-1.030); Squamous Epithelial Cell Urine 0-4 /hpf (0-5); Urine Appearance SL Hazy (CLEAR); Urine Color Yellow (Yellow); Urobilinogen Urine Norm (Negative); WBC Urine 25-40 /hpf (0-5); pH Urine 7 (5-7)
[2021-09-04 03:08] LABS: Basophils % 0.4 %; Eosinophils % 0.7 %; Hematocrit 26.8 % (42.0-52.0); Lymphocytes # 0.7 10^3/uL (0.8-4.8); Lymphocytes % 13.2 %; Mean Corpuscular HGB Conc 29.9 g/dL (30.0-36.0); Mean Corpuscular Hemoglobin 26.8 pg (28.0-34.0); Mean Corpuscular Volume 89.9 fl (80-94); Mean Platelet Volume 9.8 fL (7.4-10.4); Monocytes # 0.6 10^3/uL (0.2-0.9); Monocytes % 11.4 %; Neutrophils # 3.88 10^3/uL (1.8-7.7); Neutrophils % 72.3 %; Nucleated Red Blood Cells % 0 %; Platelet Count 156 10^3/cmm (130-400); Red Blood Count 2.98 10^6/uL (4.1-5.3); Red Cell Distribution Width 15.3 % (12.1-15.1); White Blood Count 5.4 10^3/uL (4.0-10.0)
[2021-09-04 03:44] LABS: Alanine Aminotransferase 7 U/L (0-41); Alkaline Phosphatase 76 IU/L (40-130); Anion Gap 14.8 (5-19); Aspartate Amino Transferase 10 U/L (0-40); Blood Urea Nitrogen 69 mg/dL (8-23); Calcium 8.6 mg/dL (8.5-10.5); Carbon Dioxide 22 mmol/L (22-29); Chloride 106 mmol/L (98-107); Creatine Phosphokinase 43 U/L (39-308); Globulin 3.1 g/dL (1.3-4.6); Glucose 92 mg/dL (65-115); NT Pro B Type Natriuretic Pept 1184 pg/mL (0-450); Osmolality Calculated 308 mOsm/kg (285-295); Phosphorus 3.6 mg/dL (2.5-4.5); Potassium 3.8 mmol/L (3.5-5.1); Sodium 139 mmol/L (136-145); Total Bilirubin 0.2 mg/dL (0.15-1.2); Total Protein 6.1 g/dL (6.6-8.7)
[2021-09-04 03:52] LABS: Creatinine Clr Calc Pharmacy 7.1854
--- NOTE | 2021-09-04 07:44 | PC.SOCIAL ---
IMM signed IMM signed and dated by patient, copy given to patient and one placed in chart
[2021-09-04] MEDS: sodium chloride 0.9% 1,000 ML 100 ML IV ×2 (08:10→19:49)
[2021-09-04] MEDS: famotidine 20 mg Tablet PO ×2 (08:11→15:47)
[2021-09-04] MEDS: allopurinol 100 mg Tablet PO (08:11)
[2021-09-04] MEDS: heparin 5,000 unit/mL INJ 1 mL 5000 UNIT SUBCUT ×2 (08:11→20:24)
[2021-09-04] MEDS: tamsulosin 0.4 mg Capsule PO (08:11)
[2021-09-04] MEDS: finasteride 5 mg Tablet PO (08:11)
--- NOTE | 2021-09-04 10:11 | PM.PN ---
Subjective Subjective: Mr. Bergman returns for evaluation, with some worsening of his renal function found on outpatient labs. He was apparently lethargic in the emergency room, however, he is now awake, lucid, interactive. Buchanan catheter remains in place, some slight bloody discharge around the urethral meatus where the catheter is inserting. Received some gentle IV fluid overnight. No extremity edema, shortness of breath or other hypervolemic symptoms. No other new uremic symptoms. Vitals/I&O/Wt Last Vital Signs Temp 97.5 F L 09/04/21 08:00 Pulse 102 H 09/04/21 08:00 Resp 18 09/04/21 08:00 BP 104/57 09/04/21 08:00 Pulse Ox 97 09/04/21 08:00 09/03/21 09/04/21 09/04/21 22:59 06:59 14:59 Intake Total 240 / 240 120 / 360 1240 / 1240 Output Total 800 / 800 Balance 240 / 240 -680 / -440 1240 / 1240 Weight last 48 hrs Weight 56.518 kg Weight 57.153 kg Physical Exam Narrative: Constitutional: Awake, comfortable HEENT: Wet mucosa, no jvp, non icteric Lungs: Bilaterally clear without discernible wheeze, rales in all lung zones CVS: S1 S2, no murmurs Abdo: Soft, BS ok Ext 4: Minimal edema, peripheral perfusion with no cyanosis Neurological: Grossly non-focal Data : 09/04/21 02:17 09/04/21 02:17 A&P Assessment and plan (1) Acute kidney injury superimposed on CKD: 1. Acute on chronic kidney disease Slight progression in renal dysfunction over the last few days since his recent hospitalization. No acute indication for hemodialysis today and I hope the creatinine settles out in the next 24 hours or so. Over time, the kidneys will fail, at that time palliation will be needed. Potentially we could be looking at this in the next 24 hours if his kidney function does not stabilize. Buchanan cath remains in place Continue gentle IV hydration Labs in the a.m. No other diagnostic testing is required at this time. 2. Chemistry Well-balanced. Labs in the AM. 3. Anemia Hemoglobin is noted to be drifting down. Continue to monitor with transfusion if hemoglobin drops below 7. 4. Disposition Okay for discharge back to residential facility if creatinine stabilizes. If creatinine continues deteriorate will need inpatient palliative care evaluation Colten Thompson MD Nephrology [phone] Patient seen and examined via telemedicine, with the assistance of the bedside RN > 25 min spent in evaluation and mgmt of patient Status: Acute Attestations Medical Necessity Statement*: Eval for DIANE Coding Level of Care Code Acute Warp Tension Tester for [employer] Fwd Diagnoses Acute kidney injury superimposed on CKD N17.9; N18.9
--- NOTE | 2021-09-04 11:17 | PM.PN ---
Subjective Subjective: Patient is lucid today son at the bedside Patient was asking to eat, noticed blood around urethra however no blood in the bag Vitals/I&O/Wt Last Vital Signs Temp 97.5 F L 09/04/21 08:00 Pulse 102 H 09/04/21 08:00 Resp 18 09/04/21 08:00 BP 104/57 09/04/21 08:00 Pulse Ox 97 09/04/21 08:00 09/03/21 09/04/21 09/04/21 22:59 06:59 14:59 Intake Total 240 / 240 120 / 360 1240 / 1240 Output Total 800 / 800 550 / 550 Balance 240 / 240 -680 / -440 690 / 690 Weight last 48 hrs Weight 56.518 kg Weight 57.153 kg Physical Exam Narrative: Patient was eating breakfast Awake and alert Nonfocal neuro exam Looks euvolemic Buchanan catheter in place draining dilute urine Blood clots and bleeding noted around the Buchanan catheter Asked nurse to change his diapers and give him fresh gown No audible stridor or wheezing Saturating well on room air Abdomen soft Data : 09/04/21 02:17 09/04/21 02:17 A&P Assessment and plan (1) DNR (do not resuscitate): Status: Acute (2) Acute kidney injury superimposed on CKD: Status: Acute (3) Detrusor dysfunction: Status: Acute Plan Acute on chronic kidney disease Related to bladder obstruction Recent ultrasound did not show hydronephrosis Patient does not want dialysis however no acute indication No uremic encephalopathy Currently awake and alert Son at the bedside Dr. 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
--- NOTE | 2021-09-04 13:29 | PC.CHAP ---
Pastoral Care Encounter/Spiritual Assessment Type of Contact [] Declined pizza delivery driver visit [] Patient/Family/Request visit [] Outpatient visit [] Follow-up visit [] Physician referral [] Code/Alert [x] Routine visit [] Staff referral [] Actively dying x[x] Patient sleeping [] Family support [] [] Out of room [] Palliative care [] [] Receiving care in room [] Pre-surgical visit [] Trauma [] Long length of stay [] ICU visit [] Other: Relational/Emotional Strength [] Patient feels connected with others/family/visitors/staff [] Distress [] Loneliness/isolation [] Abandonment Spirituality of Patient [] Person of Sanna [] Attends Orthodox of their Sanna [] Believes in Prayer [] Reads Bible or Synagogue materials [] There are Spiritual issues to be addressed Manufacturing Technology Professor Interventions [] Prayer [] Active listening [] Non-anxious presence [] Spiritual/emotional support [] Crisis/trauma care [] Spiritual counseling [] Bereavement support [] Provided bereavement packet [] Provided Bible/devotional materials [] Provided toy/stuffed animal, coloring book to patient or family member [] Provided Communion [] Anointing/[place] [] Salvation [] Completed spiritual assessment [] Other: Impact on Illness or Injury [] Angry [] Fearful [] Anxious [] Often cries [] Exhaustion [] Unable to work [] Unable to attend christianity [] Unable to walk/stand [] Unable to read [] Unable to drive [] Unable to eat/drink [] Unable to sleep [] Unable to be with family [] Patient intubated [] Other: Summary Time spent with patient
[2021-09-04] MEDS: OLANZapine 5 mg TABLET PO (20:25)
[2021-09-05 04:00] VITALS: BP 128/71; PULSE 92; RESP 16; TEMP 36.6; O2SAT 98
[2021-09-05 05:43] VITALS: PULSE 85
[2021-09-05] MEDS: sodium chloride 0.9% 1,000 ML 100 ML IV (05:55)
--- NOTE | 2021-09-05 06:34 | P.PN_ITS ---
Subjective Subjective: No new issues with Jose today. He reports feeling well. No uremic symptoms. On IV fluids over the last 24 hours, no extremity edema or other hypervolemic symptoms. Urine output 1150. Hemodynamics reviewed, remained stable. Vitals/I&O/Wt Last Vital Signs Temp 97.8 F 09/05/21 04:00 Pulse 85 09/05/21 05:43 Resp 16 09/05/21 04:00 BP 128/71 09/05/21 04:00 Pulse Ox 98 09/05/21 04:00 09/04/21 09/04/21 09/05/21 14:59 22:59 06:59 Intake Total 1440 / 1440 1200 / 2640 1100 / 3740 Output Total 550 / 550 300 / 850 300 / 1150 Balance 890 / 890 900 / 1790 800 / 2590 Weight last 48 hrs Weight 56.518 kg Weight 57.153 kg Physical Exam Narrative: Constitutional: Awake, comfortable HEENT: Wet mucosa, no jvp, non icteric Lungs: Bilaterally clear without discernible wheeze, rales in all lung zones CVS: S1 S2, no murmurs Abdo: Soft, BS ok Ext 4: Minimal edema, peripheral perfusion with no cyanosis Neurological: Grossly non-focal Data : 09/04/21 02:17 09/04/21 02:17 A&P Assessment and plan (1) Acute kidney injury superimposed on CKD: 1. Acute on chronic kidney disease Currently on IV hydration. Labs pending for today. As long as creatinine lower than 6.5, he can go home. Over time, the kidneys will fail, at that time palliation will be needed. Potentially we could be looking at this in the next 24 hours if his kidney function does not stabilize. Buchanna cath remains in place Continue gentle IV hydration for time being Labs in the a.m. No other diagnostic testing is required at this time. 2. Chemistry Well-balanced yesterday, labs pending 3. Anemia Hemoglobin is noted to be drifting down. Continue to monitor with transfusion if hemoglobin drops below 7. 4. Disposition Okay for discharge back to [facility] facility if creatinine stabilizes. If creatinine continues deteriorate will need inpatient palliative care evaluation Colten Thompson MD Nephrology [phone] Patient seen and examined via telemedicine, with the assistance of the bedside RN > 25 min spent in evaluation and mgmt of patient Status: Acute Attestations Medical Necessity Statement*: brady, advanced ckd Coding Level of Care Code Acute Associate Director Of Development for Chg Fwd Diagnoses Acute kidney injury superimposed on CKD N17.9; N18.9
[2021-09-05] MEDS: allopurinol 100 mg Tablet PO (07:10)
[2021-09-05] MEDS: famotidine 20 mg Tablet PO (07:10)
[2021-09-05] MEDS: finasteride 5 mg Tablet PO (07:10)
[2021-09-05] MEDS: heparin 5,000 unit/mL INJ 1 mL 5000 UNIT SUBCUT (07:11)
[2021-09-05] MEDS: tamsulosin 0.4 mg Capsule PO (07:11)
[2021-09-05 07:25] LABS: Basophils % 0.2 %; Eosinophils % 0.9 %; Hematocrit 25.9 % (42.0-52.0); Hemoglobin 7.5 g/dL (11.7-16.6); Lymphocytes # 0.6 10^3/uL (0.8-4.8); Lymphocytes % 14.7 %; Mean Corpuscular Hemoglobin 26.9 pg (28.0-34.0); Mean Corpuscular Volume 92.8 fl (80-94); Mean Platelet Volume 9.6 fL (7.4-10.4); Monocytes # 0.6 10^3/uL (0.2-0.9); Neutrophils # 2.94 10^3/uL (1.8-7.7); Neutrophils % 69.8 %; Nucleated Red Blood Cells % 0 %; Platelet Count 140 10^3/cmm (130-400); Red Blood Count 2.79 10^6/uL (4.1-5.3); Red Cell Distribution Width 15.3 % (12.1-15.1); White Blood Count 4.2 10^3/uL (4.0-10.0)
[2021-09-05 07:49] VITALS: BP 122/72; PULSE 84; RESP 18; TEMP 36.7; O2SAT 96
[2021-09-05 08:10] LABS: Alanine Aminotransferase 6 U/L (0-41); Albumin Level 2.7 g/dL (3.5-5.2); Alkaline Phosphatase 71 IU/L (40-130); Anion Gap 14.9 (5-19); Aspartate Amino Transferase 10 U/L (0-40); Blood Urea Nitrogen 54 mg/dL (8-23); Calcium 7.5 mg/dL (8.5-10.5); Carbon Dioxide 20 mmol/L (22-29); Chloride 110 mmol/L (98-107); Globulin 2.7 g/dL (1.3-4.6); Glucose 85 mg/dL (65-115); Osmolality Calculated 306 mOsm/kg (285-295); Potassium 3.9 mmol/L (3.5-5.1); Sodium 141 mmol/L (136-145); Total Bilirubin 0.2 mg/dL (0.15-1.2); Total Protein 5.4 g/dL (6.6-8.7)
[2021-09-05 08:19] LABS: Creatine Phosphokinase 35 U/L (39-308); NT Pro B Type Natriuretic Pept 1918 pg/mL (0-450)
[2021-09-05 11:15] VITALS: BP 111/68; PULSE 90; RESP 18; TEMP 36.6; O2SAT 98
--- NOTE | 2021-09-05 11:46 | PM.DCS ---
Discharge Providers Date of Admission: 09/03/21 17:47 Date of Discharge: September 05, 2021 Attending Provider at Admission: Velma Ashby MD Attending Provider at Discharge: Velma Ashby MD Primary Care Provider: Maciej Butcher DO Diagnoses at Discharge Discharge Diagnosis (1) Acute kidney injury superimposed on CKD: Status: Acute Reason for Visit Reason for Visit: KIDNEY ISSUES Hospital Course Hospital Course Admitting note by Dr. Barnard geetha Bergman is a 86 year old male with past medical history of BPH, bilateral hydronephrosis, CKD with baseline creatinine of 4, recent hospitalization for acute on chronic urinary retention secondary to BPH developing post renal azotemia and a UTI, for which Buchanan catheter was placed, creatinine on discharge was 5.3, recent history of COVID-19 infection, asymptomatic, who presents to [facility] due to abnormal labs drawn at [facility]. Patient was sent over to [facility] as his creatinine went up to 6.2. Currently patient is alert to person, to place, to time, he is quite alert and awake from the previous times I have seen him, his family surrounding him, he tells me that he is here at [facility] because they were worried about his kidney function, he tells me that he is feeling okay, for 86 years old, he does not want to have dialysis, he does not want to have aggressive interventions, family tells me that he does have episodes of confusion at [facility], he has been pulling at his Buchanan catheter, with slight bleeding around the Buchanan catheter, but continues to have good urine output from his Buchanan. In the emergency room he is found to have a creatinine of 6.2, was complaining of flank pain so renal ultrasound was ordered, hospitalist team was called for admission Hospital course Patient was admitted for management of acute on chronic kidney disease, recently had traumatic Buchanan removal on last hospitalization, he was sent in for worsening of kidney function, creatinine 6.2 on admission which improved after IV fluid hydration, Creatinine at the time of discharge 5.8, nephrology was consulted who recommended palliative care in case of further worsening of creatinine however he did well with IV fluid hydration. His mentation has improved, son stated that this is a most lucid interval he has seen of his father last few months. During hospitalization noticed blood around the urethral meatus however no signs of hematuria, blood clots were cleaned, hemoglobin is trickling down, does not need blood transfusion at this point. On 09/05 he is hemodynamically stable hemoglobin 7.5 creatinine 5.8. He will be discharged back to the facility. I will add a short course of antibiotic, cultures x-ray reviewed from previous urine culture which was obtained on previous hospitalization. Physical Exam Narrative: Patient is watching television Awake, comfortable? HEENT: Wet mucosa, no jvp, non icteric Lungs: Bilaterally clear without discernible wheeze, rales in all lung zones CVS: S1 S2, no murmurs Abdo: Soft, BS ok Ext 4: Minimal edema, peripheral perfusion with no cyanosis Neurological: Grossly non-focal Discharge Data Studies Completed and Pending Completed Studies During Hospitalization Category Date Time Status US renal BI* [id number] Urgent Ultrasound 09/03/21 16:37 Completed Pending at discharge Category Date Time Status Complete Blood Count w/Auto AM LABS Lab 09/06/21 04:00 Ordered Comprehensive Metabolic Panel AM LABS Lab 09/06/21 04:00 Ordered Creatine Phosphokinase AM LABS Lab 09/06/21 04:00 Ordered NT Pro B Type Natriuretic Pept QAM Lab 09/06/21 06:00 Ordered Urine Culture Stat Lab 09/04/21 00:50 Received Radiology Impressions Renal Ultrasound 09/03/21 16:37 IMPRESSION: 1. No residual hydronephrosis. 2. Mild bilateral renal atrophy with more for diffuse thinning of the cortex involving the LEFT kidney. 3. 2 cm nodule extending from the mid RIGHT kidney. Echogenicity is similar to the adjacent cortex. 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 This finding was not present in 2017. If CT with contrast cannot be performed to evaluate for renal mass recommend follow-up ultrasound in 3 months to evaluate for any interval change in this RIGHT renal lobulated cortex. Laboratory Results WBC 4.2 10^3/uL (4.0-10.0) 09/05/21 06:56 RBC 2.79 10^6/uL (4.1-5.3) L 09/05/21 06:56 Hgb 7.5 g/dL (11.7-16.6) L 09/05/21 06:56 Hct 25.9 % (42.0-52.0) L 09/05/21 06:56 MCV 92.8 fl (80-94) 09/05/21 06:56 MCH 26.9 pg (28.0-34.0) L 09/05/21 06:56 MCHC 29.0 g/dL (30.0-36.0) L 09/05/21 06:56 RDW 15.3 % (12.1-15.1) H 09/05/21 06:56 Plt Count 140 10^3/cmm (130-400) 09/05/21 06:56 MPV 9.6 fL (7.4-10.4) 09/05/21 06:56 Neut % (Auto) 69.8 % 09/05/21 06:56 Lymph % (Auto) 14.7 % 09/05/21 06:56 [place] % (Auto) 13.0 % 09/05/21 06:56 Eos % (Auto) 0.9 % 09/05/21 06:56 Baso % (Auto) 0.2 % 09/05/21 06:56 Neut # (Auto) 2.94 10^3/uL (1.8-7.7) 09/05/21 06:56 Lymph # (Auto) 0.6 10^3/uL (0.8-4.8) L 09/05/21 06:56 [place] # (Auto) 0.6 10^3/uL (0.2-0.9) 09/05/21 06:56 Eos # (Auto) 0.0 10^3/uL (0.0-0.8) 09/05/21 06:56 Baso # (Auto) 0.0 10^3/uL (0.0-0.1) 09/05/21 06:56 Nucleated RBC % (auto) 0 % 09/05/21 06:56 Nucleated RBCs # 0.0 /100WBC 09/05/21 06:56 Sodium 141 mmol/L (136-145) 09/05/21 06:56 Potassium 3.9 mmol/L (3.5-5.1) 09/05/21 06:56 Chloride 110 mmol/L (98-107) H 09/05/21 06:56 Carbon Dioxide 20 mmol/L (22-29) L 09/05/21 06:56 Anion Gap 14.9 (5-19) 09/05/21 06:56 BUN 54 mg/dL (8-23) H 09/05/21 06:56 Creatinine 5.8 mg/dL (0.7-1.2) H* 09/05/21 06:56 GFR Calculation Not Reportable 09/05/21 06:56 Glucose 85 mg/dL (65-115) 09/05/21 06:56 Calculated Osmolality 306 mOsm/kg (285-295) H 09/05/21 06:56 Calcium 7.5 mg/dL (8.5-10.5) L 09/05/21 06:56 Phosphorus 3.6 mg/dL (2.5-4.5) 09/04/21 02:17 Magnesium 2.0 mg/dL (1.7-2.3) 09/04/21 02:17 Total Bilirubin 0.2 mg/dL (0.15-1.2) 09/05/21 06:56 AST 10 U/L (0-40) 09/05/21 06:56 ALT 6 U/L (0-41) 09/05/21 06:56 Alkaline Phosphatase 71 IU/L (40-130) 09/05/21 06:56 Creatine Kinase 35 U/L (39-308) L 09/05/21 06:56 Troponin T Baseline 80 ng/L (0-15) H 09/03/21 15:05 Troponin T 120 Minute 73.03 ng/L (0-15) H 09/03/21 17:17 Delta Troponin T -6.97 ABS# (0-10) L 09/03/21 17:17 Troponin T Hi Sens 6Hr 76.39 ng/L (0-15) H 09/03/21 21:11 Troponin T Hi Sens 6Hr Delta -3.61 ng/L (0-12) L 09/03/21 21:11 NT-Pro-B Natriuret Pep 1918 pg/mL (0-450) H 09/05/21 06:56 Total Protein 5.4 g/dL (6.6-8.7) L 09/05/21 06:56 Albumin 2.7 g/dL (3.5-5.2) L 09/05/21 06:56 Globulin 2.7 g/dL (1.3-4.6) 09/05/21 06:56 TSH 0.50 uIU/mL (0.27-4.20) 09/03/21 15:05 Urine Color Yellow (Yellow) 09/04/21 00:50 Urine Appearance Sl hazy (CLEAR) 09/04/21 00:50 Urine pH 7 (5-7) 09/04/21 00:50 Ur Specific [place] 1.005 (1.005-1.030) 09/04/21 00:50 Urine Protein Trace (Negative) 09/04/21 00:50 Urine Glucose (UA) Norm (Normal) 09/04/21 00:50 Urine Ketones Negative (Negative) 09/04/21 00:50 Urine Blood 3+ (Negative) H 09/04/21 00:50 Urine Nitrate Negative (Negative) 09/04/21 00:50 Urine Bilirubin Neg (Negative) 09/04/21 00:50 Urine Urobilinogen Norm mg/dL (Negative) 09/04/21 00:50 Ur Leukocyte Esterase 2+ (Negative) H 09/04/21 00:50 Urine RBC 25-40 /hpf (0-2) H 09/04/21 00:50 Urine WBC 25-40 /hpf (0-5) H 09/04/21 00:50 Ur Squamous Epith Cells 0-4 /hpf (0-5) H 09/04/21 00:50 Ur Renal Epithelial Cell 5 /hpf 09/04/21 00:50 Amorphous Sediment Not Reportable 09/04/21 00:50 Urine Bacteria Trace /hpf (NONE) 09/04/21 00:50 Vitals Last Vital Signs Temp 97.9 F 09/05/21 11:15 Pulse 90 09/05/21 11:15 Resp 18 09/05/21 11:15 BP 111/68 09/05/21 11:15 Pulse Ox 98 09/05/21 11:15 Discharge Plan Discharge Patient Disposition: Home Condition: Stable Prescriptions: New levofloxacin 500 mg tablet 500 mg PO EVERY OTHER DAY 3 Days Qty: 3 0RF Continued Xanax 0.25 mg Tablet 0.25 mg PO DAILY PRN (Reason: Anxiety) 0RF Dulcolax (bisacodyl) 5 mg Tablet,Delayed Release (Dr/Ec) 5 mg PO DAILY PRN (Reason: Constipation) 0RF olanzapine 5 mg Tablet 5 mg PO BEDTIME 30 Days Qty: 30 0RF allopurinol 100 mg Tablet 100 mg PO DAILY 30 Days Qty: 30 0RF tamsulosin 0.4 mg Capsule 0.4 mg PO DAILY 30 Days Qty: 30 0RF finasteride 5 mg Tablet 5 mg PO DAILY 30 Days Qty: 30 0RF Discharge Orders: Discharge Order (Routine); Ordered 09/05/21 Ordered By: Velma Ashby Referrals: Maciej Butcher, [Primary Care Provider] - (Please call Dr. Butcher office at Tuesday to schedule your follow up appointment.) Patient Instructions: Levofloxacin (By mouth), Acute Kidney Injury (DC), Hydronephrosis (DC), COVID-19 (Coronavirus Disease 2019) (DC), Opioid Safety Discharge Attestations Time Spent in Discharge Care*: less than 30 min Quality Metrics Clinical Quality Measures [ No reported AMI, CVA or VTE this stay] Coding Level of Care Code Acute Chg FW DC note Diagnoses Acute kidney injury superimposed on CKD N17.9; N18.9
== END 2021-09-05 13:40 | disposition home or self-care (01) ==
LOC: ER 14:35 → MEDSURG 18:06
PROVIDERS: Family Medicine; Admitting Provider Internal Medicine; Emergency Provider Emergency Medicine; PCP Family Medicine; Visit Provider Internal Medicine
DX: N17.9 Acute kidney failure, unspecified (principal); N18.9 Chronic kidney disease, unspecified; N40.0 Benign prostatic hyperplasia without lower urinary tract symptoms; Z86.16 Personal history of COVID-19; D63.1 Anemia in chronic kidney disease; Z66 Do not resuscitate; N31.8 Other neuromuscular dysfunction of bladder; N13.30 Unspecified hydronephrosis
CPT/HCPCS: 36415; 76770; 80053; 81001; 82550; 83735; 83880; 84100; 84443; 84484; 85025; 87086; 93005; 96361; 96372; 96374; 97161; 97165; 99285; G0378; J1644; J2270; J7030

== ENCOUNTER 2021-09-07 15:30 | Emergency (ER) | payer MEDICARE, SELFPAY ==
--- NOTE | 2021-09-07 15:34 | ED_ITS ---
HPI - General Adult General: Chief complaint: General Medical Stated complaint: POSSIBLE DIALYSIS Time Seen by Provider: 09/07/21 15:31 Source: patient Mode of arrival: EMS History of Present Illness: 86-year-old male brought in to the ER by EMS for abnormal renal function. He currently is not receiving dialysis. He denies any chest pain any abdominal pain or any discomfort. He does have a Buchanan and is still making urine. Onset (ago): unknown Relieving factors: none Exacerbating factors: none Associated symptoms: Deny chest pain, confusion, cough, diaphoresis, decreased appetite, dyspnea, fevers/chills, headache(s), malaise, nausea, rash, palpitations, seizures, short of breath, syncope, vomiting or weakness Treatments prior to arrival: none Review of Systems Const: Denies: malaise or diaphoresis ENMT: Denies: throat pain, ear or mastoid pain, nasal discharge or nasal congestion Card: Denies: chest pain, palpitations or syncope Resp: Denies: dyspnea GI: Denies: nausea or vomiting : Denies: flank pain, dysuria, urinary frequency or urinary urgency Skin/Breast: Denies: rash Neuro: Denies: headache(s) or confusion PFSH ED PFSH: Medical History Acute kidney injury superimposed on CKD Bilateral hydronephrosis CKD (chronic kidney disease) COVID Detrusor dysfunction DNR (do not resuscitate) Epididymitis, right History of right inguinal hernia Intermittent self-catheterization of bladder Urinary retention Surgical History History of cataract surgery BILATERAL Family History Mother , AT AGE 76 Diabetes Father , AT AGE 67 CVA Stroke Social History Smoking and tobacco status: never smoked Alcohol intake: never Adopted: No Caregiver/support person: No Marital status: Current occupational status: retired History of recent travel: No Physical Exam 2 Const: COMMON NORMALS: no acute distress GENERAL APPEARANCE: cooperative and comfortable HENMT: COMMON NORMALS: normocephalic and atraumatic HEAD & SCALP: normocephalic and atraumatic Neck/C-Spine: COMMON NORMALS: no JVD Resp: COMMON NORMALS: normal respiratory effort, No retractions, No use of accessory muscles and clear to auscultation bilaterally AUSCULTATION: clear to auscultation bilaterally Cardio: COMMON NORMALS: no JVD, regular rate, regular rhythm and No murmurs present (Cardio) RATE: regular rate RHYTHM: regular rhythm GI: COMMON NORMALS: Soft to palpation and No hepatosplenomegaly present AUSCULTATION: Yes normoactive bowel sounds PALPATION: Yes Soft to palpation, No Tenderness to palpation present (GI), No Guarding due to palpation present (GI) and Yes No hepatosplenomegaly present Extremity: COMMON NORMALS: normal to inspection, capillary refill normal, no clubbing, cyanosis or edema, no calf tenderness and no pedal edema Skin: COMMON NORMALS: no rashes or lesions noted GENERAL SKIN EXAM: no rashes or lesions noted Course Vital Signs: Vital signs: Vital Signs Temperature 98.7 F 09/07/21 15:37 Pulse Rate 107 H 09/07/21 15:43 Respiratory Rate 16 09/07/21 15:43 Blood Pressure 142/65 09/07/21 15:43 Pulse Oximetry 100 09/07/21 15:43 [facility] - General Adult Medical Decision Making Labs reviewed. Basically he seems to be at his baseline. He definitely has chronic kidney disease is actually little better than his last time it was checked he is significantly anemic but not enough so to require transfusion at this time he otherwise is completely asymptomatic he is mildly tachycardic. Called and check to the [facility] they had simply sent him over to have a catheter placed for dialysis. He is not in acute renal failure at this time he is not hyperkalemic. I do not doubt that at some point he will need dialysis. Discussed with the family recommend they follow-up with a quarter backer he should be scheduled for outpatient placement of dialysis access whether it be hemodialysis or peritoneal dialysis as deemed appropriate by his quarter backer. If he does go into acute renal failure then an emergent tunneled dialysis catheter could be placed in the hospital setting. At this point he is not in acute renal failure this is simply his chronic renal failure. He discharged back to the [facility]. Medical Records I reviewed the patient's medical records. Lab Data I reviewed the patient's lab results. : 09/07/21 16:36 09/07/21 16:36 Laboratory Results WBC 5.4 10^3/uL (4.0-10.0) 09/07/21 16:36 RBC 2.84 10^6/uL (4.1-5.3) L 09/07/21 16:36 Hgb 7.8 g/dL (11.7-16.6) L 09/07/21 16:36 Hct 26.1 % (42.0-52.0) L 09/07/21 16:36 MCV 91.9 fl (80-94) 09/07/21 16:36 MCH 27.5 pg (28.0-34.0) L 09/07/21 16:36 MCHC 29.9 g/dL (30.0-36.0) L 09/07/21 16:36 RDW 16.1 % (12.1-15.1) H 09/07/21 16:36 Plt Count 189 10^3/cmm (130-400) 09/07/21 16:36 MPV 9.5 fL (7.4-10.4) 09/07/21 16:36 Neut % (Auto) 76.8 % 09/07/21 16:36 Lymph % (Auto) 9.7 % 09/07/21 16:36 [place] % (Auto) 9.9 % 09/07/21 16:36 Eos % (Auto) 2.1 % 09/07/21 16:36 Baso % (Auto) 0.2 % 09/07/21 16:36 Neut # (Auto) 4.12 10^3/uL (1.8-7.7) 09/07/21 16:36 Lymph # (Auto) 0.5 10^3/uL (0.8-4.8) L 09/07/21 16:36 [place] # (Auto) 0.5 10^3/uL (0.2-0.9) 09/07/21 16:36 Eos # (Auto) 0.1 10^3/uL (0.0-0.8) 09/07/21 16:36 Baso # (Auto) 0.0 10^3/uL (0.0-0.1) 09/07/21 16:36 Nucleated RBC % (auto) 0 % 09/07/21 16:36 Nucleated RBCs # 0.0 /100WBC 09/07/21 16:36 Sodium 141 mmol/L (136-145) 09/07/21 16:36 Potassium 4.7 mmol/L (3.5-5.1) 09/07/21 16:36 Chloride 110 mmol/L (98-107) H 09/07/21 16:36 Carbon Dioxide 20 mmol/L (22-29) L 09/07/21 16:36 Anion Gap 15.7 (5-19) 09/07/21 16:36 BUN 52 mg/dL (8-23) H 09/07/21 16:36 Creatinine 4.9 mg/dL (0.7-1.2) H 09/07/21 16:36 GFR Calculation Not Reportable 09/07/21 16:36 Glucose 109 mg/dL (65-115) 09/07/21 16:36 Calculated Osmolality 307 mOsm/kg (285-295) H 09/07/21 16:36 Calcium 8.6 mg/dL (8.5-10.5) 09/07/21 16:36 Phosphorus 2.1 mg/dL (2.5-4.5) L 09/07/21 16:36 Magnesium 1.7 mg/dL (1.7-2.3) 09/07/21 16:36 Total Bilirubin 0.2 mg/dL (0.15-1.2) 09/07/21 16:36 AST 13 U/L (0-40) 09/07/21 16:36 ALT 9 U/L (0-41) 09/07/21 16:36 Alkaline Phosphatase 96 IU/L (40-130) 09/07/21 16:36 Creatine Kinase 29 U/L (39-308) L 09/07/21 16:36 Total Protein 6.8 g/dL (6.6-8.7) 09/07/21 16:36 Albumin 3.2 g/dL (3.5-5.2) L 09/07/21 16:36 Globulin 3.6 g/dL (1.3-4.6) 09/07/21 16:36 Urine Color Yellow (Yellow) 09/07/21 15:46 Urine Appearance Clear (CLEAR) 09/07/21 15:46 Urine pH 6.5 (5-7) 09/07/21 15:46 Ur Specific [place] 1.010 (1.005-1.030) 09/07/21 15:46 Urine Protein 1+ (Negative) H 09/07/21 15:46 Urine Glucose (UA) Trace (Normal) H 09/07/21 15:46 Urine Ketones Negative (Negative) 09/07/21 15:46 Urine Blood 3+ (Negative) H 09/07/21 15:46 Urine Nitrate Negative (Negative) 09/07/21 15:46 Urine Bilirubin Neg (Negative) 09/07/21 15:46 Urine Urobilinogen Norm mg/dL (Negative) 09/07/21 15:46 Ur Leukocyte Esterase 2+ (Negative) H 09/07/21 15:46 Urine RBC 0-4 /hpf (0-2) H 09/07/21 15:46 Urine WBC 5-10 /hpf (0-5) H 09/07/21 15:46 Ur Squamous Epith Cells 0-4 /hpf (0-5) H 09/07/21 15:46 Amorphous Sediment Not Reportable 09/07/21 15:46 Urine Bacteria Trace /hpf (NONE) 09/07/21 15:46 Discharge Plan Discharge Patient Disposition: Home Clinical Impression: Chronic kidney disease (CKD) Condition: Stable Prescriptions: No Action Xanax 0.25 mg Tablet 0.25 mg PO DAILY PRN (Reason: Anxiety) 0RF Dulcolax (bisacodyl) 5 mg Tablet,Delayed Release (Dr/Ec) 5 mg PO DAILY PRN (Reason: Constipation) 0RF olanzapine 5 mg Tablet 5 mg PO BEDTIME 30 Days Qty: 30 0RF allopurinol 100 mg Tablet 100 mg PO DAILY 30 Days Qty: 30 0RF tamsulosin 0.4 mg Capsule 0.4 mg PO DAILY 30 Days Qty: 30 0RF finasteride 5 mg Tablet 5 mg PO DAILY 30 Days Qty: 30 0RF Discharge Orders: Discharge ED (Routine); Ordered 09/07/21 Ordered By: Nelson Manning Referrals: Maciej Butcher, [Primary Care Provider] - Patient Instructions: Opioid Safety Activity Restrictions/Additional Instructions: Follow-up with your quarter backer for future plans regarding your chronic kidney disease Coding Level of Care Code ED Grooving Machine Operator for Chg Fwd Exam Comprehensive
[2021-09-07 15:37] VITALS: BP 142/65; PULSE 107; RESP 16; TEMP 37.1; O2SAT 99
--- NOTE | 2021-09-07 15:39 | ECG_ITS ---
[facility] Test Date: 2021-09-07 Pat Name: Jose Bergman Department: Room: Gender: Male Claim Examiner: : 1935 Requested By: Nelson Roque Order Number: [id number] Deyvi MD: Anuel Leonard M.D. Measurements Intervals [place] Rate: 107 P: 61 [place]: 148 QRS: 64 QRSD: 81 T: 75 QT: 320 QTc: 427 Interpretive Statements SINUS TACHYCARDIA Compared to ECG 09/03/2021 21:39:10 T-wave abnormality no longer present Electronically Signed On 09-07-2021 18:06:30 HATCH TENDER by Anuel Leonard M.D. [id number]
[2021-09-07 15:43] VITALS: BP 142/65; PULSE 107; RESP 16; O2SAT 100
[2021-09-07 16:46] LABS: Urine Appearance Clear (CLEAR); Urine Color Yellow (Yellow); pH Urine 6.5 (5-7)
[2021-09-07 16:47] LABS: Add Urine Culture? Yes; Add Urine Microscopic? YES; Bacteria Urine TRACE /hpf; Bilirubin Urine Neg (Negative); Blood Urine 3+ (Negative); Glucose Urine UA Trace (Normal); Ketones Urine Negative (Negative); Leukocyte Esterase Urine 2+ (Negative); Nitrate Urine Negative (Negative); Protein Urine 1+ (Negative); RBC Urine 0-4 /hpf (0-2); Squamous Epithelial Cell Urine 0-4 /hpf (0-5); Urobilinogen Urine Norm (Negative)
[2021-09-07 17:08] LABS: Basophils % 0.2 %; Eosinophils # 0.1 10^3/uL (0.0-0.8); Eosinophils % 2.1 %; Hematocrit 26.1 % (42.0-52.0); Hemoglobin 7.8 g/dL (11.7-16.6); Lymphocytes # 0.5 10^3/uL (0.8-4.8); Lymphocytes % 9.7 %; Mean Corpuscular HGB Conc 29.9 g/dL (30.0-36.0); Mean Corpuscular Hemoglobin 27.5 pg (28.0-34.0); Mean Corpuscular Volume 91.9 fl (80-94); Mean Platelet Volume 9.5 fL (7.4-10.4); Monocytes # 0.5 10^3/uL (0.2-0.9); Monocytes % 9.9 %; Neutrophils # 4.12 10^3/uL (1.8-7.7); Neutrophils % 76.8 %; Nucleated Red Blood Cells % 0 %; Platelet Count 189 10^3/cmm (130-400); Red Blood Count 2.84 10^6/uL (4.1-5.3); Red Cell Distribution Width 16.1 % (12.1-15.1); White Blood Count 5.4 10^3/uL (4.0-10.0)
[2021-09-07 17:55] LABS: Alanine Aminotransferase 9 U/L (0-41); Albumin Level 3.2 g/dL (3.5-5.2); Alkaline Phosphatase 96 IU/L (40-130); Anion Gap 15.7 (5-19); Aspartate Amino Transferase 13 U/L (0-40); Blood Urea Nitrogen 52 mg/dL (8-23); Calcium 8.6 mg/dL (8.5-10.5); Carbon Dioxide 20 mmol/L (22-29); Chloride 110 mmol/L (98-107); Creatine Phosphokinase 29 U/L (39-308); Globulin 3.6 g/dL (1.3-4.6); Glucose 109 mg/dL (65-115); Magnesium 1.7 mg/dL (1.7-2.3); Osmolality Calculated 307 mOsm/kg (285-295); Phosphorus 2.1 mg/dL (2.5-4.5); Potassium 4.7 mmol/L (3.5-5.1); Sodium 141 mmol/L (136-145); Total Bilirubin 0.2 mg/dL (0.15-1.2); Total Protein 6.8 g/dL (6.6-8.7)
== END 2021-09-07 20:17 | disposition home or self-care (01) ==
PROVIDERS: Emergency Provider Family Medicine; PCP Family Medicine
DX: N18.9 Chronic kidney disease, unspecified (principal)
CPT/HCPCS: 80053; 81001; 82550; 83735; 84100; 85025; 87077; 87086; 87186; 93005; 99283

== ENCOUNTER 2022-03-17 21:57 | Emergency (ER) | payer MEDICARE, MEDICAID, SELFPAY ==
[2022-03-17 22:00] VITALS: BP 117/83; PULSE 111; RESP 18; TEMP 37.2; O2SAT 97; BMI 22.6
--- NOTE | 2022-03-17 22:02 | W.ED.ABDPA2 ---
HPI - Abdominal Pain General: Chief Complaint: Urogenital-Male Stated Complaint: cant void Time Seen by Provider: 03/17/22 21:58 Source: patient and EMS Mode of arrival: EMS Limitations: no limitations History of Present Illness: 86-year-old male has a history of chronic indwelling Buchanan states he removed his Buchanan today has not been able to place a new one has not been able to urinate throughout the day he is having lower abdominal pain and distention. Denies any fever denies any worsening improving factors. Associated Symptoms: Denies chills and fever(s) Review of Systems Const: Denies: fever(s), chills, body aches or change in appetite Eyes: Denies: blurry vision or eye discomfort ENMT: Denies: throat pain or dental pain Card: Denies: chest pain Resp: Denies: dyspnea GI: Reports: abdominal pain : Reports: difficulty urinating Musc: Denies: neck pain or back pain Skin/Breast: Denies: rash Neuro: Denies: headache(s) Psych: Denies: depression Demond/Lymph: Denies: easy bruising All/Imm: Denies: urticaria PFSH ED PFSH: Medical History Acute kidney injury superimposed on CKD Bilateral hydronephrosis CKD (chronic kidney disease) COVID Detrusor dysfunction DNR (do not resuscitate) Epididymitis, right History of right inguinal hernia Intermittent self-catheterization of bladder Urinary retention Surgical History History of cataract surgery BILATERAL Family History Mother , AT AGE 76 Diabetes Father , AT AGE 67 CVA Stroke Social History Smoking and tobacco status: never smoked Alcohol intake: never Adopted: No Caregiver/support person: No Marital status: Current occupational status: retired History of recent travel: No Physical Exam Const: COMMON NORMALS: no acute distress, patient oriented x3 and healthy appearing HENMT: COMMON NORMALS: normocephalic and atraumatic HEAD & SCALP: normocephalic and atraumatic Eye: COMMON NORMALS: Equal, round and reactive pupils present and EOMs intact bilaterally PUPIL: Yes Equal, round and reactive pupils present Neck/C-Spine: COMMON NORMALS: full ROM and supple Chest: COMMONS NORMALS: normal inspection of the chest and normal palpation of entire chest wall Resp: COMMON NORMALS: normal respiratory effort, No retractions, No use of accessory muscles and clear to auscultation bilaterally AUSCULTATION: clear to auscultation bilaterally Cardio: COMMON NORMALS: regular rate, regular rhythm and No murmurs present (Cardio) RATE: regular rate RHYTHM: regular rhythm GI: COMMON NORMALS: Soft to palpation and no masses PALPATION: Yes Soft to palpation OTHER: Distention to lower abdomen with tenderness to lower abdomen Extremity: COMMON NORMALS: normal to inspection and full ROM Neuro: COMMON NORMALS: patient oriented x3, moves all extremities and no focal motor deficits Psych: COMMON NORMALS: mental status grossly normal, Normal thought process present and cooperative THOUGHT PROCESS: Normal thought process present Skin: COMMON NORMALS: no rashes or lesions noted and no wounds GENERAL SKIN EXAM: no rashes or lesions noted Course Vital Signs: Vital signs: Vital Signs Temperature 99 F 03/17/22 22:00 Pulse Rate 111 H 03/17/22 22:00 Respiratory Rate 18 03/17/22 22:00 Blood Pressure 117/83 03/17/22 22:00 Pulse Oximetry 97 03/17/22 22:00 Oxygen Delivery Me thod 03/17/22 22:00 MDM - Abdominal Pain Medical Decision Making Patient presents here with urinary retention he gets his Buchanan changed monthly nurse that his house today was unable to place 1 we were able to place 1 here he feels much improved he had a large amount out he stable for discharge with the Buchanan at this time. Discharge Plan Discharge Patient Disposition: Home Clinical Impression: Urinary retention Condition: Stable Prescriptions: No Action levofloxacin 500 mg tablet 500 mg PO .qod Xanax 0.25 mg Tablet 0.25 mg PO DAILY PRN (Reason: Anxiety) Dulcolax (bisacodyl) 5 mg Tablet,Delayed Release (Dr/Ec) 5 mg PO DAILY PRN (Reason: Constipation) Discharge Orders: Discharge ED (Routine); Ordered 03/17/22 Ordered By: Mara Trejo Referrals: Reed Gallagher MD [Physician] - 1-3 days Hadley,Maciej F, DO [Primary Care Provider] - Discharge Diet: Advance as tolerated Discharge Activity: Resume usual activity Patient Instructions: Urinary Retention in Men (ED) Coding Level of Care Code 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
[2022-03-17 23:03] VITALS: BP 185/93; PULSE 102; RESP 18; O2SAT 95
== END 2022-03-17 23:07 | disposition home or self-care (01) ==
PROVIDERS: Emergency Provider Emergency Medicine; PCP Family Medicine
DX: R33.9 Retention of urine, unspecified (principal)
CPT/HCPCS: 99284

== ENCOUNTER 2024-09-14 17:46 | Emergency (ER) | payer MEDICARE, MEDICAID, SELFPAY ==
[2024-09-14 17:50] VITALS: BP 172/72; PULSE 91; RESP 18; TEMP 37.1; O2SAT 94; BMI 24.3
--- NOTE | 2024-09-14 18:11 | ED_ITS ---
HPI - Extremity Problem General: Chief complaint: Extremity Problem,Nontraumatic Stated complaint: taty leg color change Time Seen by Provider: 09/14/24 17:53 History of Present Illness: 89-year-old man who presents to the [facility] room by ambulance from the shelter with worsening lower extremity redness. Some discrepancy on when it started. Patient says has been going on for a while while EMS reports that shelter had reported that just started recently. No fevers. No shortness of breath. No chest pain. No altered mental status. Related Data Home Medications ?Medication ?Instructions ?Recorded ?Confirmed alprazolam 0.25 mg tablet (Xanax) 0.25 mg PO DAILY PRN Anxiety 09/03/21 09/11/21 bisacodyl 5 mg tablet,delayed 5 mg PO DAILY PRN Consti pation 09/03/21 09/11/21 release (Dulcolax (bisacodyl)) levofloxacin 500 mg tablet 500 mg PO .qod 09/11/21 Previous Rx's ?Medication ?Instructions ?Recorded doxycycline monohydrate 100 mg 100 mg PO BID 10 days # 20 caps 09/14/24 capsule Allergies Allergy/AdvReac Type Severity Reaction Status Date / Time No Known Allergies Allergy Verified 09/11/21 12:17 Review of Systems Narrative: Constitutional symptoms: Negative except as documented in HPI. Skin symptoms: Negative except as documented in HPI. Eye symptoms: Negative except as documented in HPI. ENMT symptoms: Negative except as documented in HPI. Respiratory symptoms: Negative except as documented in HPI. Cardiovascular symptoms: Negative except as documented in HPI. Gastrointestinal symptoms: Negative except as documented in HPI. Genitourinary symptoms: Negative except as documented in HPI. Musculoskeletal symptoms: Negative except as documented in HPI. Neurologic symptoms: Negative except as documented in HPI. Psychiatric symptoms: Negative except as documented in HPI. Endocrine symptoms: Negative except as documented in HPI. PFSH ED PFSH: Medical History Acute kidney injury superimposed on CKD Bilateral hydronephrosis CKD (chronic kidney disease) COVID Detrusor dysfunction DNR (do not resuscitate) Epididymitis, right History of right inguinal hernia Intermittent self-catheterization of bladder Urinary retention Surgical History History of cataract surgery BILATERAL Family History Mother , AT AGE 76 Diabetes Father , AT AGE 67 CVA Stroke Social History Smoking and tobacco/nicotine status: never used tobacco/nicotine Alcohol intake: never Substance/Drug Use: never Adopted: No Caregiver/support person: No Marital status: Current occupational status: retired Physical Exam Narrative: EXAM NARRATIVE: General: Alert, no acute distress. Skin: Warm, dry. Redness around the shins of legs bilaterally. Worse on the left than the right. Also some swelling on the left. He says this is from knee surgery had. Head: Normocephalic, atraumatic. Neck: Supple, trachea midline. Eye: Extraocular movements are intact. Ears, nose, mouth and throat: mucosa moist. Cardiovascular: Regular, Normal peripheral perfusion. Respiratory: Lungs are clear to auscultation, respirations are non-labored, breath sounds are equal, Symmetrical chest wall expansion. Gastrointestinal: Soft, Nontender, Non distended Musculoskeletal: Normal ROM, no deformity. Neurological: Alert and oriented, No focal neurological deficit observed. Psychiatric: Cooperative, appropriate mood & affect. Course Vital Signs: Vital signs: Vital Signs Temperature 98.7 F 09/14/24 17:50 Pulse Rate 91 09/14/24 17:50 Respiratory Rate 18 09/14/24 17:50 Blood Pressure 172/72 09/14/24 17:50 Pulse Oximetry 94 09/14/24 17:50 Oxygen Delivery Me thod Room Air 09/14/24 17:50 MDM - Extremity (Nontraumatic) Medical Decision Making Reassessment: Family arrived and had clarifying information. Apparently he has been being treated for this for some time. He has a renal doctor and has renal failure and they are clear that this is secondary to the swelling in his legs. However it is a bit worse and they do agree that a trial on antibiotics may help. They requested no extensive workup. No ultrasound. No lab work at this time. Assessment and plan: Venous stasis dermatitis Cellulitis ? First dose doxycycline here in the emergency room - Discharged home - Discussed plan with patient. Answered any questions. - Evaluation and treatment of this problem were appropriate in the emergency setting. No radiology studies performed this visit Discharge Plan Discharge Patient Disposition: Home Clinical Impression: Cellulitis, Venous stasis dermatitis Condition: Stable Prescriptions: New doxycycline monohydrate 100 mg capsule 100 mg PO BID 10 Days Qty: 20 0RF No Action levofloxacin 500 mg tablet 500 mg PO .qod Xanax 0.25 mg Tablet 0.25 mg PO DAILY PRN (Reason: Anxiety) Dulcolax (bisacodyl) 5 mg Tablet,Delayed Release (Dr/Ec) 5 mg PO DAILY PRN (Reason: Constipation) Discharge Orders: Discharge ED (Routine); Ordered 09/14/24 Ordered By: Anabelle Roman Referrals: Maciej Butcher, [Primary Care Provider] - Discharge Diet: Usual diet Discharge Activity: Increase activity as tolerated Patient Instructions: Cellulitis (ED), Stasis Dermatitis (ED), Opioid Safety, Pain Management Activity Restrictions/Additional Instructions: Thank you for choosing [facility] for your healthcare needs today. Please realize this is an emergency room and that we are providing you with a medical screening exam and this may not be complete and all inclusive of all the testing and or work up that you may need to determine your ailment or severity of your illness. You have been screened and evaluated and felt safe for discharge. Health conditions do change or evolve sometimes and as such it is important that you follow up with your Primary Doctor to be re checked, 3-5 days is a general good time frame for follow up. You are always welcome to return to the ED for re assessment if your symptoms are worsening or you have new concerns Print Language: Pashto Coding Level of Care Code ED Airline Flight Attendant for Bindu Weston
[2024-09-14 19:29] VITALS: BP 172/72; PULSE 88; RESP 16; O2SAT 96
--- NOTE | 2024-09-14 19:36 | PC.NURSE ---
ATTEMPTED TO CALL REPORT TO FACILITY, WAS SENT TO [facility].
== END 2024-09-14 19:36 | disposition home or self-care (01) ==
PROVIDERS: Emergency Provider Emergency Medicine; PCP Family Medicine
DX: L03.116 Cellulitis of left lower limb (principal); L03.115 Cellulitis of right lower limb; I87.2 Venous insufficiency (chronic) (peripheral); N18.9 Chronic kidney disease, unspecified
CPT/HCPCS: 99283